=== PATIENT | female | born 1955 | race Caucasian/White ===

== ENCOUNTER 2017-08-01 20:19 | Emergency (ER) | payer BC ==
[~2017-08-01] VITALS: Ht 162.6 cm; Wt 82.6 kg
[2017-08-01 20:19] VITALS: BP 150/77
[~2017-08-01 20:19] MED LIST: ARMO150T4 PO; CARB1TAB44 PO; CARB1TAB47 PO; KRIL1CAP23 PO; MULT-299 PO; OMEP20CA9 PO; ROPI5TAB2 PO; TOLT4CAP12 PO; TRAZ50TA15 PO; levodopa
[2017-08-01] MEDS ORDERED: IOHEXOL 300 MG/ML 75 ML VIAL IV ONE (21:30)
[2017-08-01] MEDS ORDERED: CONTRAST GIVEN MC PRN (21:45)
[2017-08-01 21:52] LABS: POTASSIUM ISTAT 3.3 mmol/L (3.5-5.0)
--- NOTE | 2017-08-01 22:00 | PHYS DOC ---
Past Medical History Past Medical History: GERD, Hypertension, Kidney Stone Additional Past Medical Histor: PARKINSONS, SLEEP APNEA, INSOMNIA, VIT D DEF Past Surgical History: Tonsillectomy Additional Past Surgical Histo: BUNIONECTOMY, ULNAR NERVE, LITHOTRIPSY C STENT. Alcohol Use: None Drug Use: None Adult General Chief Complaint Chief Complaint: MECHANICAL FALL HPI HPI Patient is a 61 year old F who presents with fall. Patient has Parkinson's and states she tripped over her feet and fell hitting her right side of her body. Patient has a hematoma to her right forehead and complains of some right rib pain. Patient states she did not lose consciousness. Patient denies any other injuries to her extremities upper and lower. Review of Systems Review of Systems GEN: Denies fevers, chills, sweats HEENT: Hematoma to right forehead CV: Right chest wall pain RESP: Denies shortness of air, cough GI: Denies n/v/d NEURO: Denies confusion, dizziness MSK: Denies weakness, joint pain/swelling Current Medications Current Medications Current Medications Medications (Trade) Dose Ordered Sig/Aaron Start Time Stop Time Status Last Admin Dose Admin Info (Do NOT chart on this entry -- for MONITORING) 1 each PRN DAILY PRN 08/01/17 21:45 08/03/17 21:44 Iohexol (Omnipaque 300 Mg/ml) 75 ml 1X ONCE 08/01/17 21:30 08/01/17 21:31 DC 08/01/17 21:30 75 ML Allergies Allergies Allergies Coded Allergies Type Severity Reaction Last Updated Verified No Known Drug Allergies 10/11/16 No Physical Exam Physical Exam GEN.: No apparent distress. Alert and oriented. HEENT: Hematoma to right forehead NECK: Supple. LUNGS: CTAB. HEART: RRR, S1, S2 present. Peripheral pulses intact, right chest wall pain with palpation ABDOMEN: Soft, nontender. Positive bowel sounds. EXTREMITIES: Without any cyanosis. NEUROLOGIC: Normal speech, normal tone PSYCHIATRIC: Normal affect, normal mood. SKIN: No ulcerations Current Patient Data Vital Signs Vital Signs Date Time Temp Pulse Resp B/P (MAP) Pulse Ox O2 Delivery O2 Flow Rate FiO2 08/01/17 20:19 98.1 86 16 150/77 (101) 98 Room Air 98.1 Lab Values Laboratory Tests Test 08/01/17 21:50 POC Hemoglobin 12.9 g/dL (12-15) POC Hematocrit 38 % (36-40) POC Sodium 142 mmol/L (135-145) POC Potassium 3.3 mmol/L (3.5-5.0) L POC Chloride 99 mmol/L (98-110) POC Total CO2 28 mmol/L (23-32) Anion Gap 18 mmol/L (6-14) H POC Blood Urea Nitrogen 14 mg/dL (8-26) POC Creatinine 0.7 mg/dL (0.5-1.4) Glucose Level 90 mg/dL (70-99) POC Ionized Calcium (Stephanie) 1.22 mmol/L (1.13-1.32) Laboratory Tests 08/01/17 21:50 EKG EKG [] Radiology/Procedures Radiology/Procedures CT the head and neck and CT chest FINDINGS: There is a 1.5 cm hypodense nodule identified in the left lobe of thyroid gland. The central airways are patent. The caliber of the aorta grossly appears unremarkable. The heart size grossly appears unremarkable. No evidence of pericardial effusion. Mild linear bibasilar lung airspace opacities likely atelectasis. No evidence of pleural effusion or pneumothorax. No evidence of displaced rib fractures identified. The visualized liver, spleen grossly appears unremarkable. Mild degenerative changes thoracic spine.[] Course & Med Decision Making Course & Med Decision Making Pertinent Labs and Imaging studies reviewed. (See chart for details) ED course: Patient was seen and examined emergency room CT scans of the head/C-spine/CT the chest were ordered 2300: Patient was updated on CT findings and she was up walking around without any difficulties in the emergency room. Patient was made aware of the thyroid nodules however she has a history of and knows that are there. Patient is ready go home. MDM: After reviewing the chart, CC/HPI/PMH, physical exam, [lab results], [ radiological results], I do not believe the patient sustained a significant traumatic injury warranting further workup and admission at this time. Patient is stable for discharge. Additional verbal discharge instructions were provided to the patient and that if symptoms get worse or any new symptoms arise that are worrisome to the patient she is to return to the emergency room immediately [] Dragon Disclaimer Dragon Disclaimer This electronic medical record was generated, in whole or in part, using a voice recognition dictation system. Departure Departure Impression: Primary Impression: Closed head injury Additional Impression: Chest wall contusion Disposition: HOME, SELF-CARE Condition: IMPROVED Referrals: NATASHA SESAY MD (PCP) Patient Instructions: Concussion and Brain Injury, Fall Prevention and Home Safety Additional Instructions: Please follow-up with your family physician in the next one to 2 days return if symptoms increase Problem Qualifiers NICOLÁS TORRES DO Aug 01, 2017 22:00
--- NOTE | 2017-08-01 22:37 | RAD ---
Exam performed: CT scan of the head and cervical spine without contrast. Date of Service: 08/01/2017 Comparison: None available Clinical History: Patient fell and hit forehead on the cement. Hematoma over the right side Technique: Helical acquisitions are obtained from the foramen magnum to the vertex without intravenous administration of contrast. In addition helical acquisitions are obtained through the cervical spine. Sagittal and coronal reformatted images are obtained and reviewed. CT scan head findings: The ventricular system is midline without evidence of dilatation. Normal lester-white differentiation is maintained. There is no extra axial fluid collection, intraparenchymal hemorrhage or mass lesion. The visualized orbits, paranasal sinuses and the mastoid air cells are clear. The calvarium is intact. Impression: 1. Normal non-contrast CT of the brain. End Impression. CT cervical spine findings: Normal sagittal alignment is preserved. The vertebral body heights are maintained. There is narrowing of C4/5, C5/6 and C6/7 intravertebral disc spaces with mild osteophytic spurring. There is no kyle or retrolisthesis. No prevertebral soft tissue swelling is identified. There are no fractures. No definite lymphadenopathy or masses are seen within the neck. The visualized thyroid and salivary glands appears preserved. Impression: 1. No acute abnormality seen in the CT scan cervical spine. 2. Spondylotic changes and multilevel disc degenerative changes are noted. PQRS Compliance Statement: One or more of the following individualized dose reduction techniques were utilized for this examination: 1. Automated exposure control 2. Adjustment of the mA and/or kV according to patient size 3. Use of iterative reconstruction technique Electronically signed by: Orin Munoz MD (08/01/2017 10:33 PM) [facility]
--- NOTE | 2017-08-01 22:46 | RAD ---
Examination: CT chest with IV contrast HISTORY: History of fall, rib pain COMPARISON: None available TECHNIQUE: Axial CT images of chest were performed with IV contrast. Coronal and sagittal reformats are performed. Exposure: One or more of the following individualized dose reduction techniques were utilized for this examination: 1. Automated exposure control 2. Adjustment of the mA and/or kV according to patient size 3. Use of iterative reconstruction technique FINDINGS: There is a 1.5 cm hypodense nodule identified in the left lobe of thyroid gland. The central airways are patent. The caliber of the aorta grossly appears unremarkable. The heart size grossly appears unremarkable. No evidence of pericardial effusion. Mild linear bibasilar lung airspace opacities likely atelectasis. No evidence of pleural effusion or pneumothorax. No evidence of displaced rib fractures identified. The visualized liver, spleen grossly appears unremarkable. Mild degenerative changes thoracic spine. IMPRESSION: 1. No evidence of displaced rib fracture identified. 2. Mild bibasilar lung atelectasis. 3. 1.5 cm hypodense nodule identified in the left lobe of the thyroid gland. Follow-up nonemergent ultrasound is recommended. Electronically signed by: Oj Pandey MD (08/01/2017 10:44 PM) [facility]
== END 2017-08-01 23:40 | disposition home or self-care (01) ==
LOC: ER 20:19
DX: S20.211A Contusion of right front wall of thorax, initial encounter (principal); S00.83XA Contusion of other part of head, initial encounter; S09.90XA Unspecified injury of head, initial encounter; K21.9 Gastro-esophageal reflux disease without esophagitis; I10 Essential (primary) hypertension; G20 Parkinson's disease; G47.30 Sleep apnea, unspecified; G47.00 Insomnia, unspecified; Z87.442 Personal history of urinary calculi; W01.198A Fall on same level from slipping, tripping and stumbling with subsequent striking against other object, initial encounter; Y93.89 Activity, other specified; Y92.89 Other specified places as the place of occurrence of the external cause; Y99.8 Other external cause status
CPT/HCPCS: 36415; 70450; 71260; 72125; 80047; 85014; 85018; 99284; Q9967

== ENCOUNTER → 2017-11-20 | Outpatient (CLI) | payer BC ==
[~2017-11-20] MED LIST changes: -ARMO150T4 PO; -CARB1TAB44 PO; -CARB1TAB47 PO; -KRIL1CAP23 PO; +LIDOCAINE 2% 20 ML VIAL. IJ; -MULT-299 PO; -OMEP20CA9 PO; -ROPI5TAB2 PO; -TOLT4CAP12 PO; -TRAZ50TA15 PO; -levodopa
== END | disposition home or self-care (01) ==
LOC: US 13:17
DX: E04.2 Nontoxic multinodular goiter (principal)
CPT/HCPCS: 60300; 76942; 88173; 88305

== ENCOUNTER → 2017-12-16 | Outpatient (CLI) | payer OTHER | END | disposition home or self-care (01) | LOC: KCIC CT 13:12 | DX: I62.00 Nontraumatic subdural hemorrhage, unspecified (principal) | CPT/HCPCS: 70450 ==

== ENCOUNTER 2019-07-10 16:25 | Inpatient (IN) | payer MEDICARE, OTHER ==
[~2019-07-10] VITALS: Ht 162.6 cm; Wt 59.5 kg
[~2019-07-10 16:25] MED LIST changes: +ARMO150T4 PO; +CARB1TAB2 PO; +CARB1TAB44 PO; +CARB1TAB47 PO; +CHOL10003 PO; +CYAN-25 PO; +KRIL1CAP23 PO; -LIDOCAINE 2% 20 ML VIAL. IJ; +MULT-299 PO; +OMEP20CA10 PO; +RANI150T2 PO; +ROPI5TAB4 PO; +TOLT4CAP PO; +TOLT4CAP12 PO; +TRAZ-118 PO; +levodopa
[2019-07-10] MEDS ORDERED: KETOROLAC 30 MG/ML VIAL. IV ONE (16:30)
[2019-07-10 17:11] LABS: BASO # 0.1 x10^3/uL (0.0-0.2); BASO % 1 % (0-3); EOS # 0.2 x10^3/uL (0.0-0.7); EOS % 1 % (0-3); HEMOGLOBIN 12.8 g/dL (12.0-15.5); LYMPH # 2.5 x10^3/uL (1.0-4.8); LYMPH % 22 % (24-48); MEAN CORPUSCULAR HEMOGLOBIN 31 pg (25-35); MEAN CORPUSCULAR HGB CONC 35 g/dL (31-37); MEAN CORPUSCULAR VOLUME 90 fL (79-100); MONO # 0.7 x10^3/uL (0.0-1.1); MONO % 6 % (0-9); NEUT # 8.2 x10^3/uL (1.8-7.7); NEUT % 71 % (31-73); PLATELET COUNT 281 x10^3/uL (140-400); RED BLOOD COUNT 4.13 x10^6/uL (3.50-5.40); RED CELL DISTRIBUTION WIDTH 13.7 % (11.5-14.5); WHITE BLOOD COUNT 11.6 x10^3/uL (4.0-11.0)
[2019-07-10 17:19] LABS: CALCIUM 9.4 mg/dL (8.5-10.1); CREATININE 0.7 mg/dL (0.6-1.0); POTASSIUM 3.9 mmol/L (3.5-5.1)
--- NOTE | 2019-07-10 17:20 | PHYS DOC ---
Past Medical History Past Medical History: GERD, Hypertension, Kidney Stone Additional Past Medical Histor: PARKINSONS, SLEEP APNEA, INSOMNIA, VIT D DEF Past Surgical History: Tonsillectomy Additional Past Surgical Histo: BUNIONECTOMY, ULNAR NERVE, LITHOTRIPSY C STENT., L knee Alcohol Use: None Drug Use: None Adult General Chief Complaint Chief Complaint: MECHANICAL FALL HPI HPI Patient is a 63 year old female with history of Parkinson's disease who presents with right hip pain after accidental fall from standing. Patient reports diffuse right pain radiating to pelvis worse with palpation. No lower extremity motor weakness or loss of sensation. Patient arrives by EMS and required 10 mg of morphine given in route. Patient also reports right flank/lower abdominal pain from a fall 1 week prior. Patient denies hitting her head, loss of consciousness, headache or neck pain. No other acute symptoms or complaints.[] Review of Systems Review of Systems Review symptoms as per history of present illness. All other review symptoms are negative. All other systems were reviewed and found to be within normal limits, except as documented in this note. Current Medications Current Medications Current Medications Medications (Trade) Dose Ordered Sig/Aaron Start Time Stop Time Status Last Admin Dose Admin Ketorolac Tromethamine (Toradol 30mg Vial) 30 mg 1X ONCE 07/10/19 16:30 07/10/19 16:33 DC 07/10/19 17:00 30 MG Allergies Allergies Allergies Coded Allergies Type Severity Reaction Last Updated Verified No Known Drug Allergies 10/11/16 No Physical Exam Physical Exam Constitutional: Moderate distress secondary to pain.[] HENT: Normocephalic, atraumatic, bilateral external ears normal, oropharynx moist, nose normal. [] Eyes: PERRLA, EOMI, conjunctiva normal. [] Neck: Normal range of motion, no midline tenderness, supple, no stridor. [] Cardiovascular:Heart rate regular rhythm, no murmur [] Lungs & Thorax: Bilateral breath sounds clear to auscultation [] Abdomen: Bowel sounds normal, soft, no tenderness. [] Skin: Warm, dry, no erythema, no rash. [] Back: No tenderness, no CVA tenderness. [] Extremities: Right hip pain, tenderness, limited range of motion secondary pain, no obvious rotation shortening of right lower extremity. [] Neurologic: Alert and oriented X 3, normal motor function, normal sensory function, no focal deficits noted. [] Current Patient Data Vital Signs Vital Signs Date Time Temp Pulse Resp B/P (MAP) Pulse Ox O2 Delivery O2 Flow Rate FiO2 07/10/19 16:25 97.9 76 139/55 (83) 98 Room Air 97.9 EKG EKG [] Radiology/Procedures Radiology/Procedures [Pelvis/right hip: intertroch fx.] Course & Med Decision Making Course & Med Decision Making Pertinent Labs and Imaging studies reviewed. (See chart for details) [Isolated right hip injury.. Pain address. Dr. Gomez consult for orthopedic surgery. Dr. Bui to admit] Dragon Disclaimer Dragon Disclaimer This electronic medical record was generated, in whole or in part, using a voice recognition dictation system. Departure Departure Impression: Primary Impression: Closed right hip fracture Disposition: ADMITTED INPATIENT Condition: STABLE Referrals: NATASHA SESAY MD (PCP) YRIS WHEAT DO Jul 10, 2019 17:20
[2019-07-10 17:25] LABS: ALBUMIN 3.8 g/dL (3.4-5.0); ALBUMIN/GLOBULIN RATIO 1.2 (1.0-1.7); TOTAL BILIRUBIN 1.1 mg/dL (0.2-1.0); TOTAL PROTEIN 7.1 g/dL (6.4-8.2)
[2019-07-10] MEDS ORDERED: ONDANSETRON PF 4 MG/2 ML VIAL. IV PRN (17:30)
[2019-07-10] MEDS ORDERED: ORPHENADRINE CITRATE 60 MG/2 ML VIAL. IV PRN (17:30)
[2019-07-10] MEDS ORDERED: MORPHINE SULFATE 2 MG/ML VIAL. IV PRN (17:30)
[2019-07-10] MEDS: IV NORMAL SALINE 1000ML BAG 1,000 ML IV SCH (17:36)
[2019-07-10] MEDS: fentaNYL PF VIAL 100 MCG/2 ML VIAL IV PRN ×2 (17:41→23:46)
--- NOTE | 2019-07-10 18:06 | RAD ---
Exam: Chest one view. Right hip with AP pelvis INDICATION: Trauma TECHNIQUE: Frontal view of the chest. Frontal view of the pelvis with frog-leg lateral and frontal view of the right hip. Comparisons: None FINDINGS: CHEST: The cardiomediastinal silhouette and pulmonary vessels are within normal limits. The lung and pleural spaces are clear. Hip: Transverse fracture through the mid right femoral neck. Fracture is mildly displaced with foreshortening at the fracture site. No other fractures are seen. Soft tissues are unremarkable. Joint spaces are well-maintained. IMPRESSION: 1. No acute cardiopulmonary process. 2. Transverse fracture to the mid right femoral neck Electronically signed by: Gabriella Faith MD (07/10/2019 6:03 PM) [facility]
[2019-07-10] MEDS ORDERED: PANT20TA2 PO (18:39)
[2019-07-10] MEDS ORDERED: CARB1CAP7 PO (18:39)
[2019-07-10] MEDS ORDERED: CARB1CAP5 PO (18:39)
[2019-07-10] MEDS ORDERED: CITA10TA4 PO (18:39)
[2019-07-10] MEDS ORDERED: MELO15TA23 PO (18:39)
[2019-07-10] MEDS ORDERED: RASA1TAB2 PO (18:39)
[2019-07-10 19:00] VITALS: BP 124/81
[2019-07-10] MEDS ORDERED: LEVODOPA PO PRN (19:30)
[2019-07-10] MEDS ORDERED: CARBIDOPA PO PRN (19:30)
--- NOTE | 2019-07-10 21:28 | HP ---
ADMIT DATE: 07/10/2019 CHIEF COMPLAINT: Mechanical fall with hip pain. HISTORY OF PRESENT ILLNESS: The patient is a pleasant 63-year-old female who was in her basement and fell. She complained of hip pain. She does have a severe Parkinson's as well. We did some imaging. It appears she has a hip fracture. We are going to admit the patient. She is going to surgery in the morning. PAST MEDICAL HISTORY: GERD, Parkinson's, hypertension, kidney stones, obstructive sleep apnea, insomnia, vitamin D deficiency, bunionectomy, ulnar nerve surgery, lithotripsy, left knee surgery, tonsillectomy. ALLERGIES: None. FAMILY HISTORY: Parkinson's in her mom. SOCIAL HISTORY: She is retired. She does not drink, smoke, or take drugs. She is trying to sell her house and move to [place] with her daughter. MEDICATIONS: Reviewed, please refer to the MRAD. REVIEW OF SYSTEMS: GENERAL: No history of weight change, weakness or fevers. SKIN: No bruising, hair changes or rashes. EYES: No blurred, double or loss of vision. NOSE AND THROAT: No history of nosebleeds, hoarseness or sore throat. HEART: No history of palpitations, chest pain or shortness of breath on exertion. LUNGS: Denies cough, hemoptysis, wheezing or shortness of breath. GASTROINTESTINAL: Denies changes in appetite, nausea, vomiting, diarrhea or constipation. GENITOURINARY: No history of frequency, urgency, hesitancy or nocturia. NEUROLOGIC: She complains of increased shaking. PSYCHIATRIC: No history of panic, anxiety or depression. ENDOCRINE: No history of heat or cold intolerance, polyuria or polydipsia. EXTREMITIES: She complains of right hip pain. MUSCULOSKELETAL: She complains of pain. PHYSICAL EXAMINATION: VITALS: Within normal limits and are stable. GENERAL: No apparent distress. Alert and oriented. HEENT: Head is normocephalic, atraumatic, pupils were equally round and reactive to light and accommodation. NECK: Supple, no JVD, no thyromegaly was noted. LUNGS: Clear to auscultation in all lung colon without rhonchi or wheezing. HEART: RRR, S1, S2 present. Peripheral pulses intact, no obvious murmurs were noted. ABDOMEN: Soft, nontender. Positive bowel sounds no organomegaly, normal bowel sounds. EXTREMITIES: Without any cyanosis, clubbing, or edema. Pedal pulses intact, Homans sign is negative. She has right hip pain. NEUROLOGIC: She has typical tremors consistent with Parkinson's. PSYCHIATRIC: Normal affect, normal mood. Stable. SKIN: No ulcerations or rashes, good skin turgor, no jaundice. VASCULAR: Good capillary refill, neurovascular bundle appears to be intact. LABORATORY DATA: White count is 12. Electrolytes are normal. ASSESSMENT AND PLAN: Transverse fracture of the mid right femoral neck after a fall in a middle-aged female who has Parkinson's and other medical issues. Clinically, she is stable for surgery. We have consulted Ortho. She is going to surgery in the morning. For now, I am going to resume her home meds, n.p.o. after midnight. Postoperatively, she is going to need aggressive physical therapy, occupational therapy, and probably in a few days she will be able to go to either assisted or [facility]. Long-term prognosis is guarded. TIBURCIO QUINN DO DR: ZACH/nicolasa JOB#: [id number] / [id number]
[2019-07-10] MEDS: RYTARY PO SCH ×2 (22:02)
[2019-07-10 23:00] VITALS: BP 98/71
[2019-07-11] VITALS (11 sets, daily range): BP systolic 57–149; BP diastolic 24–87
[2019-07-11] MEDS: CARBIDOPA PO SCH (01:00)
[2019-07-11] MEDS: LEVO PO SCH (01:00)
[2019-07-11] MEDS: fentaNYL PF VIAL 100 MCG/2 ML VIAL IV PRN (05:04)
[2019-07-11] MEDS ORDERED: MORPHINE SULFATE 5 MG, KETOROLAC 30MG VIAL 30 MG, ROPIVacaine 0.5% PF 60 ML, EPINEPHrin... INT ART ONE ×5 (06:00)
[2019-07-11] MEDS: RYTARY PO SCH ×11 (06:13→21:57)
[2019-07-11] MEDS: IV NORMAL SALINE 1000ML BAG 1,000 ML IV SCH (06:40)
[2019-07-11] MEDS ORDERED: DEXAMETHASONE SOD PHOS 4 MG/ML VIAL ONE (07:10)
[2019-07-11] MEDS ORDERED: ONDANSETRON PF 4 MG/2 ML VIAL. ONE (07:10)
[2019-07-11] MEDS ORDERED: LIDOCAINE 2% PF 5 ML VIAL. ONE (07:10)
[2019-07-11] MEDS ORDERED: PROPOFOL 20 ML IV ONE (07:10)
[2019-07-11] MEDS ORDERED: IV RINGERS,LACTATED 1000ML 1,000 ML IV SCH (07:22)
[2019-07-11] MEDS ORDERED: MORPHINE SULFATE 2 MG/ML VIAL. IV PRN ×2 (07:30→10:45)
[2019-07-11] MEDS ORDERED: HYDROmorphone 2 MG/ML VIAL IV PRN (07:30)
[2019-07-11] MEDS ORDERED: PROCHLORPERAZINE 10 MG/2 ML VIAL. IV PRN (07:30)
[2019-07-11] MEDS ORDERED: fentaNYL PF VIAL 100 MCG/2 ML VIAL ONE ×2 (07:36→09:47)
[2019-07-11] MEDS: RASAGILINE 1 MG PO SCH (08:00)
[2019-07-11] MEDS: DETROL 4 MG PO SCH (08:00)
[2019-07-11] MEDS ORDERED: SEVOFLURANE 61 TO 120 MINUTES. IH ONE (08:31)
[2019-07-11] MEDS ORDERED: RASAGILINE 1 MG PO SCH (09:00)
[2019-07-11] MEDS ORDERED: TOLTERODINE 4 MG PO SCH (09:00)
[2019-07-11] MEDS ORDERED: CITALOPRAM 10 MG TABLET PO SCH (09:00)
[2019-07-11] MEDS ORDERED: ePHEDrine PF IN SALINE 50 MG/10 ML SYRINGE. IV ONE (09:12)
[2019-07-11] MEDS ORDERED: SEVOFLURANE > 120 MINUTES. IH ONE (09:14)
[2019-07-11] MEDS ORDERED: ceFAZolin SODIUM 1 GM VIAL ONE (09:17)
--- NOTE | 2019-07-11 09:32 | CONS ---
DATE OF CONSULTATION: 07/11/2019 CHIEF COMPLAINT: Right hip fracture. HISTORY OF PRESENT ILLNESS: The patient is a 63-year-old female with Parkinson's disease, who lives alone and fell in her basement. Fortunately, her daughter states that she was there when this episode happened as her mom fell in an area where she was inaccessible to her phone and normally lives alone. She ambulates independently, although she does have gait of difficulties due to Parkinson's disease. PAST MEDICAL HISTORY: Significant for Parkinson's disease, hypertension, kidney stones, reflux disease, sleep apnea, insomnia, and vitamin D deficiency. PAST SURGICAL HISTORY: Significant for surgery on her ulnar nerve, bunions, a lithotripsy, left knee replacement, and tonsillectomy. FAMILY HISTORY: Significant for Parkinson's in her mom. SOCIAL HISTORY: She is retired, lives alone. Denies smoking, alcohol or drug use and her family had been encouraging her to sell her house. MEDICATIONS: List is reviewed. ALLERGIES: She has no known drug allergies. REVIEW OF SYSTEMS: She denies hitting her head. She did hit her elbow, but can move it well, has severe hip pain, inability to bear weight and has chronic gait difficulties secondary to the Parkinson's. Denies any head injury, visual changes, headache, radiating pain, focal weakness, numbness, tingling, chest pain, shortness of breath or other constitutional symptoms. PHYSICAL EXAMINATION: GENERAL: A pleasant, cooperative 63-year-old female, alert and oriented, no acute distress. Height 64 inches. Weight 58.9 kilos. HEENT: Atraumatic, normocephalic. HEART: Regular rate and rhythm. EXTREMITIES: She moves both shoulders, elbows, wrists well bilaterally. No bruising or abrasion on the right elbow. Ligaments are stable. Rotator cuff strength is good bilaterally and she has good grasp. On examination of lower extremities, the right hip is shortened, internally rotated, has healed total knee arthroplasty present on the left. Normal examination of the contralateral left hip, bilateral ankles and right knee. IMAGING: X-rays appeared to show basicervical femoral neck fracture with slight displacement. IMPRESSION: Basicervical femoral neck fracture. TREATMENT PLAN: I talked with the family about fixation of the fracture itself and plan of intramedullary hip screw and we talked her risks, benefits, postoperative course of the surgery, the possibility of nonoperative management being unlikely due to the poor healing results and immobility related factors, talked to her the possibility of nonhealing, nerve or blood vessel damage, medical or other anesthetic complications among others, difficulty getting her rehab, especially with the Parkinson's disease and preexisting gait difficulties. All their questions were answered and they agreed to proceed with surgical evaluation and treatment, which will occur today. RK HAMPTON MD DR: DEAN/nts JOB#: [id number] / [id number]
--- NOTE | 2019-07-11 10:18 | EKG ---
[facility] [address] [place] [address] Test Date: 2019-07-10 Test Time: 17:32:30 Pat Name: VALENCIA ABREU Department: Room: 434 1 Gender: F [employer] Lead: : 1955 Requested By: YRIS WHEAT Order Number: [id number] Reading MD: Lio Nolan Measurements Intervals [place] Rate: 93 P: -39 WI: 156 QRS: 59 QRSD: 94 T: 56 QT: 374 QTc: 468 Interpretive Statements SINUS RHYTHM LEFT ATRIAL ABNORMALITY NONSPECIFIC ST-T WAVE CHANGES. Electronically Signed On 07-16-2019 9:46:13 CDT by Lio Nolan
[2019-07-11] MEDS ORDERED: DEXTROSE 50% 25 GM / 50ML DISP.SYRIN. IV PRN (10:45)
[2019-07-11] MEDS ORDERED: IV DEXTROSE 5% 250 ML BAG. IV PRN (10:45)
[2019-07-11] MEDS ORDERED: oxyCODONE IR 5 MG TABLET PO PRN (10:45)
[2019-07-11] MEDS ORDERED: ONDANSETRON PF 4 MG/2 ML VIAL. IV PRN (10:45)
[2019-07-11] MEDS ORDERED: fentaNYL PF VIAL 100 MCG/2 ML VIAL IV PRN (10:45)
[2019-07-11] MEDS ORDERED: POLYETHYLENE GLYCOL 3350 17 GM PACKET. PO PRN (10:45)
--- NOTE | 2019-07-11 10:47 | PDOC4 ---
Operative Note Operative Note Date of surgery: 07/11/2019 Preoperative diagnosis: Displaced basicervical right femoral neck fracture Postoperative diagnosis: Displaced mid femoral neck fracture Operative procedure: Right hip hemiarthroplasty Surgeon: Patricia Anesthesia: Gen. Estimated blood loss: 150 mL Complications: None Drains: Hemovac right hip Operative indications: Please see my orthopedic consultation for detailed operative indications noted that she is a 63-year-old female with Parkinson's and fell. She had sustained a displaced femoral neck fracture and I had discussed with patient and family the plan for initial fixation however when x- rays showed more of a mid neck femoral neck fracture plans were changed to a right hip hemiarthroplasty I had discussed risks benefits postoperative course the possibility of instability nerve or blood vessel damage ongoing weakness infection medical or other anesthetic complications among others patient and family agree to proceed with surgical evaluation and treatment. Operative text: Patient was identified procedure verified patient placed in the supine position on the operating table. After adequate amounts of general anesthesia were administered right leg was first placed in traction but with a reduction maneuver noted to have a mid femoral neck fracture and plans were changed to a right hip hemiarthroplasty she is placed decubitus right side up with the Stulberg hip positioners in the right hip prepped and draped in standar d sterile fashion. After timeout was performed patient procedure identified and verified a curvilinear incision was made over the greater trochanter of the right hip dissection carried out down iliotibial band and gluteal fascia divided in line with their fibers external rotators were divided from their insertion hip capsule was split in a T fashion. Femoral neck and head were removed sized at a size 45 proximal femur was cut using the reference cutting guide drilled and broached and a size 12 broach was seated in proper version and trial fit with a +0 45 mm bipolar head which is achieved excellent stability and reproduced leg length and offset. Trial components were removed a size 12 Synergy stem was impacted and a Tran and nephew bipolar component 45 mm outer diameter 28 mm inner diameter was assembled and impacted to engage the Wren taper and was reduced again showing equivalent stability leg length offset and full range of motion and thorough irrigation carried out normal saline solution hip capsule was repaired with #5 Ethibond suture external rotators were reattached transosseously with #5 Ethibond a Hemovac drain was placed the pain catheter mixture was injected throughout the joint capsule fascia was closed with #1 PDS strata fix suture subcutaneous closure with buried Vicryl suture subcuticular 3-0 strata fix Monocryl and tonny drain with Acticoat were placed. Patient was returned recovery room in stable condition having tolerated procedure well RK HAMPTON MD Jul 11, 2019 10:47
--- NOTE | 2019-07-11 11:23 | RAD ---
Right hip 2 views including AP pelvis 07/11/2019. Reason for exam: Postop hip replacement. Comparison is made with intraoperative image of earlier in the day. Views of the right hip now show a prosthesis in place. This appear well seated. No fracture or dislocation is seen. A single view of the pelvis shows no fracture or dislocation. No other acute abnormality is seen. Electronically signed by: Lio Cavazos Jr., MD (07/11/2019 11:20 AM) [facility]
[2019-07-11] MEDS: IV RINGERS,LACTATED 1000ML 1,000 ML IV SCH ×2 (11:45→16:53)
[2019-07-11] MEDS: CITALOPRAM 10 MG PO SCH (13:55)
[2019-07-11] MEDS: ceFAZolin SODIUM IV Push 1 GM VIAL. IVP SCH ×2 (13:57→20:53)
--- NOTE | 2019-07-11 14:41 | PDOC ---
PROGRESS NOTES Chief Complaint Chief Complaint Transverse fracture of the mid right femoral neck Parkinson's disease History of Present Illness History of Present Illness surg today feels well a lot of movement of trunk, parkinsons stable per patient cont current PT and OT, consider acute rehab Vitals Vitals Vital Signs Date Time Temp Pulse Resp B/P (MAP) Pulse Ox O2 Delivery O2 Flow Rate FiO2 07/11/19 11:15 97.5 70 16 128/59 98 Room Air 97.5 07/11/19 10:30 10 Physical Exam Lungs: Clear Labs LABS Laboratory Tests Test 07/10/19 17:05 White Blood Count 11.6 x10^3/uL (4.0-11.0) Red Blood Count 4.13 x10^6/uL (3.50-5.40) Hemoglobin 12.8 g/dL (12.0-15.5) Hematocrit 37.0 % (36.0-47.0) Mean Corpuscular Volume 90 fL (79-100) Mean Corpuscular Hemoglobin 31 pg (25-35) Mean Corpuscular Hemoglobin Concent 35 g/dL (31-37) Red Cell Distribution Width 13.7 % (11.5-14.5) Platelet Count 281 x10^3/uL (140-400) Neutrophils (%) (Auto) 71 % (31-73) Lymphocytes (%) (Auto) 22 % (24-48) Monocytes (%) (Auto) 6 % (0-9) Eosinophils (%) (Auto) 1 % (0-3) Basophils (%) (Auto) 1 % (0-3) Neutrophils # (Auto) 8.2 x10^3/uL (1.8-7.7) Lymphocytes # (Auto) 2.5 x10^3/uL (1.0-4.8) Monocytes # (Auto) 0.7 x10^3/uL (0.0-1.1) Eosinophils # (Auto) 0.2 x10^3/uL (0.0-0.7) Basophils # (Auto) 0.1 x10^3/uL (0.0-0.2) Sodium Level 141 mmol/L (136-145) Potassium Level 3.9 mmol/L (3.5-5.1) Chloride Level 104 mmol/L (98-107) Carbon Dioxide Level 23 mmol/L (21-32) Anion Gap 14 (6-14) Blood Urea Nitrogen 12 mg/dL (7-20) Creatinine 0.7 mg/dL (0.6-1.0) Estimated GFR (Cockcroft-Gault) 84.0 BUN/Creatinine Ratio 17 (6-20) Glucose Level 90 mg/dL (70-99) Calcium Level 9.4 mg/dL (8.5-10.1) Total Bilirubin 1.1 mg/dL (0.2-1.0) Aspartate Amino Transf (AST/SGOT) 16 U/L (15-37) Alanine Aminotransferase (ALT/SGPT) 11 U/L (14-59) Alkaline Phosphatase 63 U/L (46-116) Total Protein 7.1 g/dL (6.4-8.2) Albumin 3.8 g/dL (3.4-5.0) Albumin/Globulin Ratio 1.2 (1.0-1.7) Assessment and Plan Assessmemt and Plan Problems Medical Problems: (1) Closed right hip fracture Status: Acute Comment Review of Relevant I have reviewed the following items nichole (where applicable) has been applied. Labs Laboratory Tests Test 07/10/19 17:05 White Blood Count 11.6 x10^3/uL (4.0-11.0) Red Blood Count 4.13 x10^6/uL (3.50-5.40) Hemoglobin 12.8 g/dL (12.0-15.5) Hematocrit 37.0 % (36.0-47.0) Mean Corpuscular Volume 90 fL (79-100) Mean Corpuscular Hemoglobin 31 pg (25-35) Mean Corpuscular Hemoglobin Concent 35 g/dL (31-37) Red Cell Distribution Width 13.7 % (11.5-14.5) Platelet Count 281 x10^3/uL (140-400) Neutrophils (%) (Auto) 71 % (31-73) Lymphocytes (%) (Auto) 22 % (24-48) Monocytes (%) (Auto) 6 % (0-9) Eosinophils (%) (Auto) 1 % (0-3) Basophils (%) (Auto) 1 % (0-3) Neutrophils # (Auto) 8.2 x10^3/uL (1.8-7.7) Lymphocytes # (Auto) 2.5 x10^3/uL (1.0-4.8) Monocytes # (Auto) 0.7 x10^3/uL (0.0-1.1) Eosinophils # (Auto) 0.2 x10^3/uL (0.0-0.7) Basophils # (Auto) 0.1 x10^3/uL (0.0-0.2) Sodium Level 141 mmol/L (136-145) Potassium Level 3.9 mmol/L (3.5-5.1) Chloride Level 104 mmol/L (98-107) Carbon Dioxide Level 23 mmol/L (21-32) Anion Gap 14 (6-14) Blood Urea Nitrogen 12 mg/dL (7-20) Creatinine 0.7 mg/dL (0.6-1.0) Estimated GFR (Cockcroft-Gault) 84.0 BUN/Creatinine Ratio 17 (6-20) Glucose Level 90 mg/dL (70-99) Calcium Level 9.4 mg/dL (8.5-10.1) Total Bilirubin 1.1 mg/dL (0.2-1.0) Aspartate Amino Transf (AST/SGOT) 16 U/L (15-37) Alanine Aminotransferase (ALT/SGPT) 11 U/L (14-59) Alkaline Phosphatase 63 U/L (46-116) Total Protein 7.1 g/dL (6.4-8.2) Albumin 3.8 g/dL (3.4-5.0) Albumin/Globulin Ratio 1.2 (1.0-1.7) Laboratory Tests Test 07/10/19 17:05 White Blood Count 11.6 x10^3/uL (4.0-11.0) Red Blood Count 4.13 x10^6/uL (3.50-5.40) Hemoglobin 12.8 g/dL (12.0-15.5) Hematocrit 37.0 % (36.0-47.0) Mean Corpuscular Volume 90 fL (79-100) Mean Corpuscular Hemoglobin 31 pg (25-35) Mean Corpuscular Hemoglobin Concent 35 g/dL (31-37) Red Cell Distribution Width 13.7 % (11.5-14.5) Platelet Count 281 x10^3/uL (140-400) Neutrophils (%) (Auto) 71 % (31-73) Lymphocytes (%) (Auto) 22 % (24-48) Monocytes (%) (Auto) 6 % (0-9) Eosinophils (%) (Auto) 1 % (0-3) Basophils (%) (Auto) 1 % (0-3) Neutrophils # (Auto) 8.2 x10^3/uL (1.8-7.7) Lymphocytes # (Auto) 2.5 x10^3/uL (1.0-4.8) Monocytes # (Auto) 0.7 x10^3/uL (0.0-1.1) Eosinophils # (Auto) 0.2 x10^3/uL (0.0-0.7) Basophils # (Auto) 0.1 x10^3/uL (0.0-0.2) Sodium Level 141 mmol/L (136-145) Potassium Level 3.9 mmol/L (3.5-5.1) Chloride Level 104 mmol/L (98-107) Carbon Dioxide Level 23 mmol/L (21-32) Anion Gap 14 (6-14) Blood Urea Nitrogen 12 mg/dL (7-20) Creatinine 0.7 mg/dL (0.6-1.0) Estimated GFR (Cockcroft-Gault) 84.0 BUN/Creatinine Ratio 17 (6-20) Glucose Level 90 mg/dL (70-99) Calcium Level 9.4 mg/dL (8.5-10.1) Total Bilirubin 1.1 mg/dL (0.2-1.0) Aspartate Amino Transf (AST/SGOT) 16 U/L (15-37) Alanine Aminotransferase (ALT/SGPT) 11 U/L (14-59) Alkaline Phosphatase 63 U/L (46-116) Total Protein 7.1 g/dL (6.4-8.2) Albumin 3.8 g/dL (3.4-5.0) Albumin/Globulin Ratio 1.2 (1.0-1.7) Medications Current Medications Ketorolac Tromethamine (Toradol 30mg Vial) 30 mg 1X ONCE IV Last administered on 07/10/19at 17:00; Start 07/10/19 at 16:30; Stop 07/10/19 at 16:33; Status DC Ondansetron HCl (Zofran) 4 mg PRN Q8HRS PRN IV NAUSEA/VOMITING Last administered on 07/10/19at 17:36; Start 07/10/19 at 17:30; Stop 07/11/19 at 17:29 Morphine Sulfate (Morphine Sulfate) 2 mg PRN Q2HR PRN IV PAIN; Start 07/10/19 at 17:30; Stop 07/10/19 at 17:26; Status DC Sodium Chloride 1,000 ml @ 75 mls/hr [id number] IV Last administered on 07/10/19at 17:36; Start 07/10/19 at 17:20; Stop 07/11/19 at 17:19 Fentanyl Citrate (Fentanyl 2ml Vial) 50 mcg PRN Q2HR PRN IV PAIN SEVERE Last administered on 07/11/19at 05:05; Start 07/10/19 at 17:30 Orphenadrine Citrate (Norflex) 30 mg PRN Q8HRS PRN IV muscle spasm; Start 07/10/19 at 17:30 Non-Formulary Medication 1 ea 5XDAY PO Last administered on 07/11/19at 13:58; Start 07/10/19 at 22:00 Non-Formulary Medication 3 ea DAILY@0600 PO Last administered on 07/11/19at 06: 15; Start 07/11/19 at 06:00 Non-Formulary Medication 2 ea TID@1000,1400,2200 PO Last administered on 07/11/19at 13:58; Start 07/10/19 at 22:00 Non-Formulary Medication 1 ea DAILY@1800 PO Last administered on 07/11/19at 11:42; Start 07/11/19 at 18:00 Non-Formulary Medication 1 ea DAILY PO ; Start 07/11/19 at 09:00; Stop 07/11/19 at 00:51; Status DC Non-Formulary Medication 1 ea DAILY PO ; Start 07/11/19 at 09:00; Stop 07/11/19 at 00:51; Status DC Non-Formulary Medication 1 ea DAILY PO ; Start 07/11/19 at 09:00; Stop 07/11/19 at 00:51; Status DC Non-Formulary Medication 1 ea PRN BID PRN PO PARKINSON'S SYMPTOMS; Start 07/10/19 at 19:30; Stop 07/11/19 at 00:51; Status DC Non-Formulary Medication 1 ea 0100 PO Last administered on 07/11/19at 01:17; Start 07/11/19 at 01:00 Non-Formulary Medication 1 ea 1400 PO Last administered on 07/11/19at 13:58; Start 07/11/19 at 14:00 Non-Formulary Medication 1 ea DAILY08 PO Last administered on 07/11/19at 11:42; Start 07/11/19 at 08:00 Non-Formulary Medication 1 ea DAILY08 PO Last administered on 07/11/19at 11:42; Start 07/11/19 at 08:00 Propofol 20 ml @ As Directed STK-MED ONCE IV ; Start 07/11/19 at 07:10; Stop 07/11/19 at 07:10; Status DC Dexamethasone Sodium Phosphate (Decadron) 4 mg STK-MED ONCE .ROUTE ; Start 07/11/19 at 07:10; Stop 07/11/19 at 07:10; Status DC Lidocaine HCl (Lidocaine Pf 2% Vial) 5 ml STK-MED ONCE .ROUTE ; Start 07/11/19 at 07:10; Stop 07/11/19 at 07:11; Status DC Ondansetron HCl (Zofran) 4 mg STK-MED ONCE .ROUTE ; Start 07/11/19 at 07:10; Stop 07/11/19 at 07:11; Status DC Morphine Sulfate (Morphine Sulfate) 1 mg PRN Q10MIN PRN IV SEVERE PAIN 7-10; Start 07/11/19 at 07:30; Stop 07/12/19 at 07:29 Ringer's Solution 1,000 ml @ 30 mls/hr Q24H IV ; Start 07/11/19 at 07:22; Stop 07/11/19 at 19:21 Hydromorphone HCl (Dilaudid) 0.5 mg PRN Q10MIN PRN IV SEV PAIN, Second choice; Start 07/11/19 at 07:30; Stop 07/12/19 at 07:29 Prochlorperazine Edisylate (Compazine) 5 mg PACU PRN PRN IV NAUSEA, MRX1; Start 07/11/19 at 07:30; Stop 07/12/19 at 07:29 Fentanyl Citrate (Fentanyl 2ml Vial) 100 mcg STK-MED ONCE .ROUTE ; Start 07/11/19 at 07:36; Stop 07/11/19 at 07:36; Status DC Cefazolin Sodium 50 ml @ As Directed STK-MED ONCE IV ; Start 07/11/19 at 08:12; Stop 07/11/19 at 08:12; Status DC Sevoflurane (Ultane) 60 ml STK-MED ONCE IH ; Start 07/11/19 at 08:31; Stop 07/11/19 at 08:31; Status DC Morphine Sulfate 5 mg/Ketorolac Tromethamine 30 mg/Ropivacaine 60 ml/Epinephrine HCl 0.5 mg/Sodium Chloride 100 ml @ 100 mls/hr 1X ONCE INT ART Last administered on 07/11/19at 10:20; Start 07/11/19 at 06:00; Stop 07/11/19 at 09:07; Status DC Ephedrine Sulfate (ePHEDrine PF IN SALINE SYRINGE) 50 mg STK-MED ONCE IV ; Start 07/11/19 at 09:12; Stop 07/11/19 at 09:12; Status DC Sevoflurane (Ultane) 90 ml STK-MED ONCE IH ; Start 07/11/19 at 09:14; Stop 07/11/19 at 09:14; Status DC Cefazolin Sodium (Ancef) 1 gm STK-MED ONCE .ROUTE ; Start 07/11/19 at 09:17; Stop 07/11/19 at 09:17; Status DC Fentanyl Citrate (Fentanyl 2ml Vial) 100 mcg STK-MED ONCE .ROUTE ; Start 07/11/19 at 09:47; Stop 07/11/19 at 09:47; Status DC Cefazolin Sodium 50 ml @ 100 mls/hr 1X PREOP PRN IV PRIOR TO PROCEDURE Last administered on 07/11/19at 09:58; Start 07/12/19 at 06:00; Stop 07/11/19 at 11:25; Status DC Oxycodone HCl (Roxicodone) 5 mg PRN Q3HRS PRN PO PAIN; Start 07/11/19 at 10:45 Morphine Sulfate (Morphine Sulfate) 2 mg PRN Q1HR PRN IV PAIN; Start 07/11/19 at 10:45 Fentanyl Citrate (Fentanyl 2ml Vial) 25 mcg PRN Q1HR PRN IV PAIN; Start 07/11/19 at 10:45 Senna/Docusate Sodium (Senna Plus) 1 tab DAILY PO ; Start 07/12/19 at 09:00 Polyethylene Glycol (miraLAX PACKET) 17 gm PRN DAILY PRN PO CONSTIPATION; Start 07/11/19 at 10:45 Ondansetron HCl (Zofran) 4 mg PRN Q4HRS PRN IV NAUSEA/VOMITING; Start 07/11/19 at 10:45 Magnesium Hydroxide (Milk Of Magnesia) 2,400 mg 1X PRN PRN PO CONSTIPATION; Start 07/12/19 at 06:00; Stop 07/13/19 at 05:59 Bisacodyl (Dulcolax Supp) 10 mg 1X PRN PRN AR CONSTIPATION; Start 07/12/19 at 16:00; Stop 07/13/19 at 15:59 Acetaminophen/ Hydrocodone Bitart (Lortab 7.5/325) 1 tab PRN Q4HRS PRN PO PAIN; Start 07/11/19 at 10:45 Dextrose (Dextrose 50%-Water Syringe) 12.5 gm PRN Q15MIN PRN IV SEE COMMENTS; Start 07/11/19 at 10:45 Dextrose 250 ml PRN Q15MIN PRN IV SEE COMMENTS; Start 07/11/19 at 10:45 Cefazolin Sodium (Ancef) 1 gm Q6H IVP Last administered on 07/11/19at 13:58; Start 07/11/19 at 14:00; Stop 07/12/19 at 02:01 Rivaroxaban (Xarelto) 10 mg DAILYWSUP PO ; Start 07/11/19 at 17:00; Stop 08/22/19 at 16:59 Ringer's Solution 1,000 ml @ 120 mls/hr Q8H20M IV Last administered on at 11:45; Start 07/11/19 at 11:45 Active Scripts Active Reported Rytary ER 48.75 mg-195 mg Cap (Carbidopa/Levodopa) 1 Each Capsule.er 1 Each PO 5XDAY Rytary ER 61.25 mg-245 mg Cap (Carbidopa/Levodopa) 1 Each Capsule.er 1 Each PO 5XDAY Protonix (Pantoprazole Sodium) 20 Mg Tablet.dr 40 Mg PO DAILY Azilect (Rasagiline Mesylate) 1 Mg Tablet 1 Mg PO DAILY Meloxicam 15 Mg Tablet 1 Tab PO DAILY Citalopram Hbr (Citalopram Hydrobromide) 10 Mg Tablet 1 Tab PO DAILY Sinemet 25-100 Mg Tablet (Carbidopa/Levodopa) 1 Each Tablet 1 Tab PO PRN BID PRN Vitamin B-12 (Cyanocobalamin (Vitamin B-12)) 1,000 Mcg Tablet 5,000 Mcg PO DAILY Vitamin D3 (Cholecalciferol (Vitamin D3)) 1,000 Unit Tablet 2,000 Unit PO DAILY Tolterodine Tartrate Er (Tolterodine Tartrate) 4 Mg Cap.er.24h 4 Mg PO DAILY Women's Daily Caplet (Multivits,Ca,Minerals/Iron/Fa) 1 Each Tablet 1 Each PO DAILY Megared [place]-3 Krill Oil Sfgl (Krill/Om-3/Dha/Epa/Phospho/Ast) 1 Each Capsule 1 Each PO BID Vitals/I & O Vital Sign - Last 24 Hours 07/10/19 07/10/19 07/10/19 07/10/19 16:25 17:31 17:34 17:41 Temp 97.9 97.9 Pulse 76 90 94 Resp 20 20 20 B/P (MAP) 139/55 (83) Pulse Ox 98 98 98 99 O2 Delivery Room Air 07/10/19 07/10/19 07/10/19 07/10/19 18:01 19:00 20:30 23:00 Temp 97.7 97.8 97.7 97.8 Pulse 88 85 100 Resp 19 18 18 B/P (MAP) 124/81 (95) 98/71 (80) Pulse Ox 98 97 94 O2 Delivery Room Air Room Air Room Air 07/11/19 07/11/19 07/11/19 07/11/19 03:00 07:39 10:30 10:30 Temp 98.3 97.5 98.3 97.5 Pulse 69 68 Resp 18 16 B/P (MAP) 149/84 (105) 106/48 Pulse Ox 97 99 O2 Delivery Room Air Room Air Simple Mask Mask O2 Flow Rate 10 10 07/11/19 07/11/19 07/11/19 10:45 11:00 11:15 Temp 97.5 97.5 97.5 97.5 97.5 97.5 Pulse 80 70 70 Resp 17 16 16 B/P (MAP) 109/48 114/53 128/59 Pulse Ox 95 92 98 O2 Delivery Room Air Room Air Room Air Simple Mask Intake and Output 07/10/19 07/10/19 07/11/19 15:00 23:00 07:00 Intake Total 700 ml Output Total 600 ml Balance 700 ml -600 ml SHERRI BROWNLEE MD Jul 11, 2019 14:40
[2019-07-11] MEDS ORDERED: CARBIDOPA/LEVODOPA 25/100MG TABLET PO PRN (14:45)
[2019-07-11] MEDS: RIVAROXABAN 10 MG TABLET. PO SCH (16:52)
[2019-07-11] MEDS ORDERED: LEVODOPA PO SCH (18:00)
[2019-07-11] MEDS ORDERED: CARBIDOPA PO SCH (18:00)
[2019-07-11] MEDS: HYDROcodone/APAP 7.5/325MG 1 TAB TABLET PO PRN (20:58)
[2019-07-12] MEDS: IV RINGERS,LACTATED 1000ML 1,000 ML IV SCH ×3 (00:49→21:21)
[2019-07-12] MEDS: CARBIDOPA PO SCH (00:50)
[2019-07-12] MEDS: LEVO PO SCH (00:50)
[2019-07-12] MEDS: ceFAZolin SODIUM IV Push 1 GM VIAL. IVP SCH (02:35)
[2019-07-12 02:47] VITALS: BP 91/52
[2019-07-12 05:29] LABS: HEMATOCRIT 28.8 % (36.0-47.0); HEMOGLOBIN 9.9 g/dL (12.0-15.5)
[2019-07-12] MEDS ORDERED: MAGNESIUM HYDROXIDE 2,400 MG/30 ML ORAL.SUSP. PO PRN (06:00)
[2019-07-12] MEDS: RYTARY PO SCH ×10 (06:43→21:55)
[2019-07-12 07:00] VITALS: BP 101/53
[2019-07-12] MEDS: RASAGILINE 1 MG PO SCH (07:59)
[2019-07-12] MEDS: DETROL 4 MG PO SCH (07:59)
[2019-07-12] MEDS: SENNOSIDES/DOCUSATE 8.6/50MG TABLET. PO SCH ×2 (08:16→08:52)
[2019-07-12] MEDS: CHOLECALCIFEROL (VITAMIN D3) 1,000 UNIT TABLET PO SCH (08:52)
[2019-07-12] MEDS: CYANOCOBALAMIN (VITAMIN B-12) 1,000 MCG TABLET. PO SCH ×2 (08:55→09:27)
[2019-07-12] MEDS ORDERED: TOLTERODINE TARTRATE 4 MG PO SCH (09:00)
[2019-07-12] MEDS ORDERED: CITALOPRAM 10 MG TABLET. PO SCH (09:00)
[2019-07-12] MEDS ORDERED: NON FORMULARY ITEM (Pantoprazole Sodium (Protonix) 40 MG) PO SCH (09:00)
[2019-07-12] MEDS ORDERED: NON FORMULARY ITEM (Meloxicam 1 TAB) PO SCH (09:00)
[2019-07-12] MEDS ORDERED: RASAGILINE MESYLATE 1 MG PO SCH (09:00)
--- NOTE | 2019-07-12 10:44 | PDOC ---
PROGRESS NOTES Chief Complaint Chief Complaint Transverse fracture of the mid right femoral neck Parkinson's disease perative Note Operative Note Date of surgery: 07/11/2019 Preoperative diagnosis: Displaced basicervical right femoral neck fracture Postoperative diagnosis: Displaced mid femoral neck fracture Operative procedure: Right hip hemiarthroplasty Surgeon: Patricia Anesthesia: Gen. Estimated blood loss: 150 mL 29 min pt exam, chart review, > 50% of time spent with exam, chart review, pt care coordination History of Present Illness History of Present Illness surg today feels well a lot of movement of trunk, parkinsons stable per patient cont current PT and OT, consider acute rehab Vitals Vitals Vital Signs Date Time Temp Pulse Resp B/P (MAP) Pulse Ox O2 Delivery O2 Flow Rate FiO2 07/12/19 07:07 Room Air 07/12/19 07:00 97.6 67 16 101/53 (69) 96 97.6 07/11/19 14:59 2.0 Physical Exam Physical Exam RODERICK: Supple, no JVD, no thyromegaly was noted. LUNGS: Clear to auscultation in all lung colon without rhonchi or wheezing. HEART: RRR, S1, S2 present. Peripheral pulses intact, no obvious murmurs were noted. ABDOMEN: Soft, nontender. Positive bowel sounds no organomegaly, normal bowel sounds. EXTREMITIES: Without any cyanosis, clubbing, or edema. Pedal pulses intact, NEUROLOGIC: She has typical tremors consistent with Parkinson's. PSYCHIATRIC: Normal affect, normal mood. Stable. General: Cooperative Heart: Regular rate Lungs: Clear Abdomen: Normal bowel sounds, Soft, No tenderness Extremities: No cyanosis Labs LABS Laboratory Tests Test 07/12/19 04:35 Hemoglobin 9.9 g/dL (12.0-15.5) Hematocrit 28.8 % (36.0-47.0) Mean Corpuscular Hemoglobin Concent 34 g/dL (31-37) Assessment and Plan Assessmemt and Plan Problems Medical Problems: (1) Closed right hip fracture Status: Acute Comment Review of Relevant I have reviewed the following items nichole (where applicable) has been applied. Labs Laboratory Tests Test 07/10/19 17:05 07/11/19 04:00 07/12/19 04:35 White Blood Count 11.6 x10^3/uL (4.0-11.0) Red Blood Count 4.13 x10^6/uL (3.50-5.40) Hemoglobin 12.8 g/dL (12.0-15.5) 9.9 g/dL (12.0-15.5) Hematocrit 37.0 % (36.0-47.0) 28.8 % (36.0-47.0) Mean Corpuscular Volume 90 fL (79-100) Mean Corpuscular Hemoglobin 31 pg (25-35) Mean Corpuscular Hemoglobin Concent 35 g/dL (31-37) 34 g/dL (31-37) Red Cell Distribution Width 13.7 % (11.5-14.5) Platelet Count 281 x10^3/uL (140-400) Neutrophils (%) (Auto) 71 % (31-73) Lymphocytes (%) (Auto) 22 % (24-48) Monocytes (%) (Auto) 6 % (0-9) Eosinophils (%) (Auto) 1 % (0-3) Basophils (%) (Auto) 1 % (0-3) Neutrophils # (Auto) 8.2 x10^3/uL (1.8-7.7) Lymphocytes # (Auto) 2.5 x10^3/uL (1.0-4.8) Monocytes # (Auto) 0.7 x10^3/uL (0.0-1.1) Eosinophils # (Auto) 0.2 x10^3/uL (0.0-0.7) Basophils # (Auto) 0.1 x10^3/uL (0.0-0.2) Sodium Level 141 mmol/L (136-145) Potassium Level 3.9 mmol/L (3.5-5.1) Chloride Level 104 mmol/L (98-107) Carbon Dioxide Level 23 mmol/L (21-32) Anion Gap 14 (6-14) Blood Urea Nitrogen 12 mg/dL (7-20) Creatinine 0.7 mg/dL (0.6-1.0) Estimated GFR (Cockcroft-Gault) 84.0 BUN/Creatinine Ratio 17 (6-20) Glucose Level 90 mg/dL (70-99) Calcium Level 9.4 mg/dL (8.5-10.1) Total Bilirubin 1.1 mg/dL (0.2-1.0) Aspartate Amino Transf (AST/SGOT) 16 U/L (15-37) Alanine Aminotransferase (ALT/SGPT) 11 U/L (14-59) Alkaline Phosphatase 63 U/L (46-116) Total Protein 7.1 g/dL (6.4-8.2) Albumin 3.8 g/dL (3.4-5.0) Albumin/Globulin Ratio 1.2 (1.0-1.7) Nasal Screen MRSA (PCR) Negative (Negative) Laboratory Tests Test 07/12/19 04:35 Hemoglobin 9.9 g/dL (12.0-15.5) Hematocrit 28.8 % (36.0-47.0) Mean Corpuscular Hemoglobin Concent 34 g/dL (31-37) Medications Current Medications Ketorolac Tromethamine (Toradol 30mg Vial) 30 mg 1X ONCE IV Last administered on 07/10/19at 17:00; Start 07/10/19 at 16:30; Stop 07/10/19 at 16:33; Status DC Ondansetron HCl (Zofran) 4 mg PRN Q8HRS PRN IV NAUSEA/VOMITING Last administered on 07/10/19at 17:36; Start 07/10/19 at 17:30; Stop 07/11/19 at 17:29; Status DC Morphine Sulfate (Morphine Sulfate) 2 mg PRN Q2HR PRN IV PAIN; Start 07/10/19 at 17:30; Stop 07/10/19 at 17:26; Status DC Sodium Chloride 1,000 ml @ 75 mls/hr [id number] IV Last administered on 07/10/19at 17:36; Start 07/10/19 at 17:20; Stop 07/11/19 at 17:19; Status DC Fentanyl Citrate (Fentanyl 2ml Vial) 50 mcg PRN Q2HR PRN IV PAIN SEVERE Last administered on 07/11/19at 05:05; Start 07/10/19 at 17:30; Stop 07/12/19 at 10:32; Status DC Orphenadrine Citrate (Norflex) 30 mg PRN Q8HRS PRN IV muscle spasm; Start 07/10/19 at 17:30 Non-Formulary Medication 1 ea 5XDAY PO Last administered on 07/12/19at 08:55; Start 07/10/19 at 22:00 Non-Formulary Medication 3 ea DAILY@0600 PO Last administered on 07/12/19at 06:44; Start 07/11/19 at 06:00 Non-Formulary Medication 2 ea TID@1000,1400,2200 PO Last administered on 07/12/19at 08:55; Start 07/10/19 at 22:00 Non-Formulary Medication 1 ea DAILY@1800 PO Last administered on 07/11/19at 17:44; Start 07/11/19 at 18:00 Non-Formulary Medication 1 ea DAILY PO ; Start 07/11/19 at 09:00; Stop 07/11/19 at 00:51; Status DC Non-Formulary Medication 1 ea DAILY PO ; Start 07/11/19 at 09:00; Stop 07/11/19 at 00:51; Status DC Non-Formulary Medication 1 ea DAILY PO ; Start 07/11/19 at 09:00; Stop 07/11/19 at 00:51; Status DC Non-Formulary Medication 1 ea PRN BID PRN PO PARKINSON'S SYMPTOMS; Start 07/10/19 at 19:30; Stop 07/11/19 at 00:51; Status DC Non-Formulary Medication 1 ea 0100 PO Last administered on 07/12/19at 00:51; Start 07/11/19 at 01:00 Non-Formulary Medication 1 ea 1400 PO Last administered on 07/11/19at 13:58; Start 07/11/19 at 14:00 Non-Formulary Medication 1 ea DAILY08 PO Last administered on 07/12/19at 08:00; Start 07/11/19 at 08:00 Non-Formulary Medication 1 ea DAILY08 PO Last administered on 07/12/19at 08:00; Start 07/11/19 at 08:00 Propofol 20 ml @ As Directed STK-MED ONCE IV ; Start 07/11/19 at 07:10; Stop 07/11/19 at 07:10; Status DC Dexamethasone Sodium Phosphate (Decadron) 4 mg STK-MED ONCE .ROUTE ; Start 07/11/19 at 07:10; Stop 07/11/19 at 07:10; Status DC Lidocaine HCl (Lidocaine Pf 2% Vial) 5 ml STK-MED ONCE .ROUTE ; Start 07/11/19 at 07:10; Stop 07/11/19 at 07:11; Status DC Ondansetron HCl (Zofran) 4 mg STK-MED ONCE .ROUTE ; Start 07/11/19 at 07:10; Stop 07/11/19 at 07:11; Status DC Morphine Sulfate (Morphine Sulfate) 1 mg PRN Q10MIN PRN IV SEVERE PAIN 7-10; Start 07/11/19 at 07:30; Stop 07/12/19 at 07:29; Status DC Ringer's Solution 1,000 ml @ 30 mls/hr Q24H IV ; Start 07/11/19 at 07:22; Stop 07/11/19 at 19:21; Status DC Hydromorphone HCl (Dilaudid) 0.5 mg PRN Q10MIN PRN IV SEV PAIN, Second choice; Start 07/11/19 at 07:30; Stop 07/12/19 at 07:29; Status DC Prochlorperazine Edisylate (Compazine) 5 mg PACU PRN PRN IV NAUSEA, MRX1; Start 07/11/19 at 07:30; Stop 07/12/19 at 07:29; Status DC Fentanyl Citrate (Fentanyl 2ml Vial) 100 mcg STK-MED ONCE .ROUTE ; Start 07/11/19 at 07:36; Stop 07/11/19 at 07:36; Status DC Cefazolin Sodium 50 ml @ As Directed STK-MED ONCE IV ; Start 07/11/19 at 08:12; Stop 07/11/19 at 08:12; Status DC Sevoflurane (Ultane) 60 ml STK-MED ONCE IH ; Start 07/11/19 at 08:31; Stop 07/11/19 at 08:31; Status DC Morphine Sulfate 5 mg/Ketorolac Tromethamine 30 mg/Ropivacaine 60 ml/Epinephrine HCl 0.5 mg/Sodium Chloride 100 ml @ 100 mls/hr 1X ONCE INT ART Last administered on 07/11/19at 10:20; Start 07/11/19 at 06:00; Stop 07/11/19 at 09:07; Status DC Ephedrine Sulfate (ePHEDrine PF IN SALINE SYRINGE) 50 mg STK-MED ONCE IV ; Start 07/11/19 at 09:12; Stop 07/11/19 at 09:12; Status DC Sevoflurane (Ultane) 90 ml STK-MED ONCE IH ; Start 07/11/19 at 09:14; Stop 07/11 at 09:14; Status DC Cefazolin Sodium (Ancef) 1 gm STK-MED ONCE .ROUTE ; Start 07/11/19 at 09:17; Stop 07/11/19 at 09:17; Status DC Fentanyl Citrate (Fentanyl 2ml Vial) 100 mcg STK-MED ONCE .ROUTE ; Start 07/11/19 at 09:47; Stop 07/11/19 at 09:47; Status DC Cefazolin Sodium 50 ml @ 100 mls/hr 1X PREOP PRN IV PRIOR TO PROCEDURE Last administered on 07/11/19at 09:58; Start 07/12/19 at 06:00; Stop 07/11/19 at 11:25; Status DC Oxycodone HCl (Roxicodone) 5 mg PRN Q3HRS PRN PO PAIN; Start 07/11/19 at 10:45 Morphine Sulfate (Morphine Sulfate) 2 mg PRN Q1HR PRN IV PAIN; Start 07/11/19 at 10:45 Fentanyl Citrate (Fentanyl 2ml Vial) 25 mcg PRN Q1HR PRN IV PAIN; Start 07/11/19 at 10:45 Senna/Docusate Sodium (Senna Plus) 1 tab DAILY PO Last administered on at 08:55; Start 07/12/19 at 09:00 Polyethylene Glycol (miraLAX PACKET) 17 gm PRN DAILY PRN PO CONSTIPATION; Start 07/11/19 at 10:45 Ondansetron HCl (Zofran) 4 mg PRN Q4HRS PRN IV NAUSEA/VOMITING; Start 07/11/19 at 10:45 Magnesium Hydroxide (Milk Of Magnesia) 2,400 mg 1X PRN PRN PO CONSTIPATION; Start 07/12/19 at 06:00; Stop 07/13/19 at 05:59 Bisacodyl (Dulcolax Supp) 10 mg 1X PRN PRN [place] CONSTIPATION; Start 07/12/19 at 16:00; Stop 07/13/19 at 15:59 Acetaminophen/ Hydrocodone Bitart (Lortab 7.5/325) 1 tab PRN Q4HRS PRN PO PAIN Last administered on 07/11/19at 21:01; Start 07/11/19 at 10:45 Dextrose (Dextrose 50%-Water Syringe) 12.5 gm PRN Q15MIN PRN IV SEE COMMENTS; Start 07/11/19 at 10:45 Dextrose 250 ml PRN Q15MIN PRN IV SEE COMMENTS; Start 07/11/19 at 10:45 Cefazolin Sodium (Ancef) 1 gm Q6H IVP Last administered on 07/12/19at 02:35; Start 07/11/19 at 14:00; Stop 07/12/19 at 02:01; Status DC Rivaroxaban (Xarelto) 10 mg DAILYWSUP PO Last administered on 07/11/19at 16:53; Start 07/11/19 at 17:00; Stop 08/22/19 at 16:59 Ringer's Solution 1,000 ml @ 120 mls/hr Q8H20M IV Last administered on 07/12/19at 08:57; Start 07/11/19 at 11:45 Carbidopa/Levodopa (Sinemet 25/100) 1 tab PRN BID PRN PO TREMORS; Start 07/11/19 at 14:45 Vitamin D (Vitamin D3) 2,000 unit DAILY PO Last administered on 07/12/19at 08:55; Start 07/12/19 at 09:00 Citalopram Hydrobromide (CeleXA) 10 mg DAILY PO ; Start 07/12/19 at 09:00; Status Cancel Cyanocobalamin (Vitamin B-12) 5,000 mcg DAILY PO Last administered on 07/12/19at 09:27; Start 07/12/19 at 09:00 Non-Formulary Medication (Carbidopa/ Levodopa (Rytary ER 61.25 mg-245 mg Cap)) 1 each 5XDAY PO ; Start 07/11/19 at 18:00; Stop 07/11/19 at 14:44; Status DC Non-Formulary Medication (Meloxicam ) 1 tab DAILY PO ; Start 07/12/19 at 09:00; Stop 07/11/19 at 14:44; Status DC Non-Formulary Medication (Pantoprazole Sodium (Protonix)) 40 mg DAILY PO ; Start 07/12/19 at 09:00; Stop 07/11/19 at 14:44; Status DC Non-Formulary Medication (Rasagiline Mesylate (Azilect)) 1 mg DAILY PO ; Start 07/12/19 at 09:00; Stop 07/11/19 at 14:44; Status DC Non-Formulary Medication (Tolterodine Tartrate (Tolterodine Tartrate Er)) 4 mg DAILY PO ; Start 07/12/19 at 09:00; Stop 07/11/19 at 14:44; Status DC Active Scripts Active Reported Rytary ER 48.75 mg-195 mg Cap (Carbidopa/Levodopa) 1 Each Capsule.er 1 Each PO 5XDAY Rytary ER 61.25 mg-245 mg Cap (Carbidopa/Levodopa) 1 Each Capsule.er 1 Each PO 5XDAY Protonix (Pantoprazole Sodium) 20 Mg Tablet.dr 40 Mg PO DAILY Azilect (Rasagiline Mesylate) 1 Mg Tablet 1 Mg PO DAILY Meloxicam 15 Mg Tablet 1 Tab PO DAILY Citalopram Hbr (Citalopram Hydrobromide) 10 Mg Tablet 1 Tab PO DAILY Sinemet 25-100 Mg Tablet (Carbidopa/Levodopa) 1 Each Tablet 1 Tab PO PRN BID PRN Vitamin B-12 (Cyanocobalamin (Vitamin B-12)) 1,000 Mcg Tablet 5,000 Mcg PO DAILY Vitamin D3 (Cholecalciferol (Vitamin D3)) 1,000 Unit Tablet 2,000 Unit PO DAILY Tolterodine Tartrate Er (Tolterodine Tartrate) 4 Mg Cap.er.24h 4 Mg PO DAILY Women's Daily Caplet (Multivits,Ca,Minerals/Iron/Fa) 1 Each Tablet 1 Each PO DAILY Megared [place]-3 Krill Oil Sfgl (Krill/Om-3/Dha/Epa/Phospho/Ast) 1 Each Capsule 1 Each PO BID Vitals/I & O Vital Sign - Last 24 Hours 07/11/19 07/11/19 07/11/19 07/11/19 10:45 11:00 11:15 11:37 Temp 97.5 97.5 97.5 97.7 97.5 97.5 97.5 97.7 Pulse 80 70 70 73 Resp 17 16 16 16 B/P (MAP) 109/48 114/53 128/59 104/61 (75) Pulse Ox 95 92 98 93 O2 Delivery Room Air Room Air Room Air Nasal Cannula Simple Mask O2 Flow Rate 2.0 07/11/19 07/11/19 07/11/19 07/11/19 11:39 11:55 12:10 12:56 Pulse 72 74 75 78 B/P (MAP) 117/57 (77) 57/36 (43) 105/56 (72) 87/24 (45) Pulse Ox 99 95 97 96 O2 Delivery Nasal Cannula Nasal Cannula Nasal Cannula Nasal Cannula O2 Flow Rate 2.0 2.0 2.0 2.0 07/11/19 07/11/19 07/11/19 07/11/19 13:16 13:59 14:59 19:00 Temp 98.1 98.1 Pulse 76 88 86 90 Resp 16 B/P (MAP) 109/43 (65) 112/87 (95) 127/44 (71) 126/64 (84) Pulse Ox 96 96 94 95 O2 Delivery Nasal Cannula Nasal Cannula Nasal Cannula Room Air O2 Flow Rate 2.0 2.0 2.0 07/11/19 07/11/19 07/12/19 07/12/19 20:00 22:35 00:15 02:47 Temp 98.4 97.5 98.4 97.5 Pulse 77 65 Resp 16 16 B/P (MAP) 118/65 (82) 91/52 (65) Pulse Ox 96 98 O2 Delivery Room Air Room Air Room Air Room Air 07/12/19 07/12/19 07:00 07:07 Temp 97.6 97.6 Pulse 67 Resp 16 B/P (MAP) 101/53 (69) Pulse Ox 96 O2 Delivery Room Air Room Air Intake and Output 07/11/19 07/11/19 07/12/19 15:00 23:00 07:00 Intake Total 250 ml Output Total 150 ml 800 ml Balance -150 ml -550 ml LEONEL TOSCANO MD Jul 12, 2019 10:44
[2019-07-12 11:00] VITALS: BP 80/38
--- NOTE | 2019-07-12 11:08 | NUR ---
Patients blood pressure is 80/40, pulse 68, patient is asymptomatic. Notified Dr. Dupree, new order received for 1L NS over 2 hours.
[2019-07-12] MEDS ORDERED: IV NORMAL SALINE 1000ML BAG 1,000 ML IV ONE (11:15)
[2019-07-12] MEDS ORDERED: IV NORMAL SALINE 1000ML BAG 1,000 ML IV SCH (11:15)
[2019-07-12] MEDS: CITALOPRAM 10 MG PO SCH (13:57)
--- NOTE | 2019-07-12 13:57 | NUR ---
SS following for discharge planning. SS reviewed pt chart. Pt is from home and is currently on room air. PT/OT recommended group home unit at discharge. SS met with pt to discuss group home unit and discharge planning. Pt declined [facility] and all group home units in [place] and requested referral be phoned and faxed to [facility], ; fax [phone]. SS phoned and faxed referral. SS will await acceptance decision and will proceed accordingly.
[2019-07-12 15:00] VITALS: BP 107/42
[2019-07-12] MEDS ORDERED: IV NORMAL SALINE 1000ML BAG 750 ML IV ONE (15:30)
[2019-07-12] MEDS: RIVAROXABAN 10 MG TABLET. PO SCH (15:34)
[2019-07-12] MEDS ORDERED: BISACODYL 10 MG SUPP.RECT. PR PRN (16:00)
[2019-07-12 19:00] VITALS: BP 101/79
[2019-07-12 23:00] VITALS: BP 122/61
[2019-07-13] MEDS: CARBIDOPA PO SCH (00:31)
[2019-07-13] MEDS: LEVO PO SCH (00:31)
[2019-07-13 03:00] VITALS: BP 115/53
[2019-07-13] MEDS: RYTARY PO SCH ×11 (05:31→22:13)
[2019-07-13] MEDS: IV RINGERS,LACTATED 1000ML 1,000 ML IV SCH ×3 (05:33→22:11)
[2019-07-13 06:17] LABS: BASO % 0 % (0-3); EOS # 0.3 x10^3/uL (0.0-0.7); EOS % 4 % (0-3); HEMATOCRIT 29.2 % (36.0-47.0); LYMPH # 2.1 x10^3/uL (1.0-4.8); LYMPH % 31 % (24-48); MEAN CORPUSCULAR HEMOGLOBIN 31 pg (25-35); MEAN CORPUSCULAR HGB CONC 34 g/dL (31-37); MEAN CORPUSCULAR VOLUME 91 fL (79-100); MONO # 0.6 x10^3/uL (0.0-1.1); MONO % 9 % (0-9); NEUT # 3.8 x10^3/uL (1.8-7.7); NEUT % 56 % (31-73); PLATELET COUNT 187 x10^3/uL (140-400); RED BLOOD COUNT 3.19 x10^6/uL (3.50-5.40); RED CELL DISTRIBUTION WIDTH 13.8 % (11.5-14.5); WHITE BLOOD COUNT 6.7 x10^3/uL (4.0-11.0)
[2019-07-13 06:40] LABS: ALBUMIN 2.5 g/dL (3.4-5.0); ALBUMIN/GLOBULIN RATIO 0.8 (1.0-1.7); ALK PHOS 50 U/L (46-116); ANION GAP 6 (6-14); AST (SGOT) 17 U/L (15-37); BLOOD UREA NITROGEN 3 mg/dL (7-20); BUN/CREATININE RATIO 6 (6-20); CALCIUM 8.3 mg/dL (8.5-10.1); CARBON DIOXIDE 30 mmol/L (21-32); CHLORIDE 106 mmol/L (98-107); CREATININE 0.5 mg/dL (0.6-1.0); GFR 123.8; GLUCOSE 97 mg/dL (70-99); SODIUM 142 mmol/L (136-145); TOTAL BILIRUBIN 0.9 mg/dL (0.2-1.0); TOTAL PROTEIN 5.5 g/dL (6.4-8.2)
[2019-07-13 07:00] VITALS: BP 110/81
[2019-07-13 07:01] LABS: ALT (SGPT) < 6 U/L (14-59)
[2019-07-13] MEDS: CYANOCOBALAMIN (VITAMIN B-12) 1,000 MCG TABLET. PO SCH (08:15)
[2019-07-13] MEDS: RASAGILINE 1 MG PO SCH (08:16)
[2019-07-13] MEDS: CHOLECALCIFEROL (VITAMIN D3) 1,000 UNIT TABLET PO SCH (08:16)
[2019-07-13] MEDS: DETROL 4 MG PO SCH (08:16)
[2019-07-13] MEDS: SENNOSIDES/DOCUSATE 8.6/50MG TABLET. PO SCH (08:16)
--- NOTE | 2019-07-13 10:48 | PDOC ---
PROGRESS NOTES Chief Complaint Chief Complaint Transverse fracture of the mid right femoral neck Parkinson's disease perative Note Operative Note Date of surgery: 07/11/2019 Preoperative diagnosis: Displaced basicervical right femoral neck fracture Postoperative diagnosis: Displaced mid femoral neck fracture Operative procedure: Right hip hemiarthroplasty Surgeon: Patricia Anesthesia: Gen. Estimated blood loss: 150 mL 29 min pt exam, chart review, > 50% of time spent with exam, chart review, pt care coordination History of Present Illness History of Present Illness surg today feels well a lot of movement of trunk, parkinsons stable per patient cont current PT and OT, consider acute rehab Vitals Vitals Vital Signs Date Time Temp Pulse Resp B/P (MAP) Pulse Ox O2 Delivery O2 Flow Rate FiO2 07/13/19 08:00 Room Air 07/13/19 07:00 98.1 70 18 110/81 (91) 92 98.1 Physical Exam Physical Exam RODERICK: Supple, no JVD, no thyromegaly was noted. LUNGS: Clear to auscultation in all lung colon without rhonchi or wheezing. HEART: RRR, S1, S2 present. Peripheral pulses intact, no obvious murmurs were noted. ABDOMEN: Soft, nontender. Positive bowel sounds no organomegaly, normal bowel sounds. EXTREMITIES: Without any cyanosis, clubbing, or edema. Pedal pulses intact, NEUROLOGIC: She has typical tremors consistent with Parkinson's. PSYCHIATRIC: Normal affect, normal mood. Stable. General: Cooperative Heart: Regular rate Lungs: Clear Abdomen: Normal bowel sounds, Soft, No tenderness Extremities: No cyanosis Labs LABS Laboratory Tests Test 07/13/19 05:00 White Blood Count 6.7 x10^3/uL (4.0-11.0) Red Blood Count 3.19 x10^6/uL (3.50-5.40) Hemoglobin 10.0 g/dL (12.0-15.5) Hematocrit 29.2 % (36.0-47.0) Mean Corpuscular Volume 91 fL (79-100) Mean Corpuscular Hemoglobin 31 pg (25-35) Mean Corpuscular Hemoglobin Concent 34 g/dL (31-37) Red Cell Distribution Width 13.8 % (11.5-14.5) Platelet Count 187 x10^3/uL (140-400) Neutrophils (%) (Auto) 56 % (31-73) Lymphocytes (%) (Auto) 31 % (24-48) Monocytes (%) (Auto) 9 % (0-9) Eosinophils (%) (Auto) 4 % (0-3) Basophils (%) (Auto) 0 % (0-3) Neutrophils # (Auto) 3.8 x10^3/uL (1.8-7.7) Lymphocytes # (Auto) 2.1 x10^3/uL (1.0-4.8) Monocytes # (Auto) 0.6 x10^3/uL (0.0-1.1) Eosinophils # (Auto) 0.3 x10^3/uL (0.0-0.7) Basophils # (Auto) 0.0 x10^3/uL (0.0-0.2) Sodium Level 142 mmol/L (136-145) Potassium Level 4.0 mmol/L (3.5-5.1) Chloride Level 106 mmol/L (98-107) Carbon Dioxide Level 30 mmol/L (21-32) Anion Gap 6 (6-14) Blood Urea Nitrogen 3 mg/dL (7-20) Creatinine 0.5 mg/dL (0.6-1.0) Estimated GFR (Cockcroft-Gault) 123.8 BUN/Creatinine Ratio 6 (6-20) Glucose Level 97 mg/dL (70-99) Calcium Level 8.3 mg/dL (8.5-10.1) Total Bilirubin 0.9 mg/dL (0.2-1.0) Aspartate Amino Transf (AST/SGOT) 17 U/L (15-37) Alanine Aminotransferase (ALT/SGPT) < 6 U/L (14-59) Alkaline Phosphatase 50 U/L (46-116) Total Protein 5.5 g/dL (6.4-8.2) Albumin 2.5 g/dL (3.4-5.0) Albumin/Globulin Ratio 0.8 (1.0-1.7) Assessment and Plan Assessmemt and Plan Problems Medical Problems: (1) Closed right hip fracture Status: Acute Comment Review of Relevant I have reviewed the following items nichole (where applicable) has been applied. Labs Laboratory Tests Test 07/12/19 04:35 07/13/19 05:00 Hemoglobin 9.9 g/dL (12.0-15.5) 10.0 g/dL (12.0-15.5) Hematocrit 28.8 % (36.0-47.0) 29.2 % (36.0-47.0) Mean Corpuscular Hemoglobin Concent 34 g/dL (31-37) 34 g/dL (31-37) White Blood Count 6.7 x10^3/uL (4.0-11.0) Red Blood Count 3.19 x10^6/uL (3.50-5.40) Mean Corpuscular Volume 91 fL (79-100) Mean Corpuscular Hemoglobin 31 pg (25-35) Red Cell Distribution Width 13.8 % (11.5-14.5) Platelet Count 187 x10^3/uL (140-400) Neutrophils (%) (Auto) 56 % (31-73) Lymphocytes (%) (Auto) 31 % (24-48) Monocytes (%) (Auto) 9 % (0-9) Eosinophils (%) (Auto) 4 % (0-3) Basophils (%) (Auto) 0 % (0-3) Neutrophils # (Auto) 3.8 x10^3/uL (1.8-7.7) Lymphocytes # (Auto) 2.1 x10^3/uL (1.0-4.8) Monocytes # (Auto) 0.6 x10^3/uL (0.0-1.1) Eosinophils # (Auto) 0.3 x10^3/uL (0.0-0.7) Basophils # (Auto) 0.0 x10^3/uL (0.0-0.2) Sodium Level 142 mmol/L (136-145) Potassium Level 4.0 mmol/L (3.5-5.1) Chloride Level 106 mmol/L (98-107) Carbon Dioxide Level 30 mmol/L (21-32) Anion Gap 6 (6-14) Blood Urea Nitrogen 3 mg/dL (7-20) Creatinine 0.5 mg/dL (0.6-1.0) Estimated GFR (Cockcroft-Gault) 123.8 BUN/Creatinine Ratio 6 (6-20) Glucose Level 97 mg/dL (70-99) Calcium Level 8.3 mg/dL (8.5-10.1) Total Bilirubin 0.9 mg/dL (0.2-1.0) Aspartate Amino Transf (AST/SGOT) 17 U/L (15-37) Alanine Aminotransferase (ALT/SGPT) < 6 U/L (14-59) Alkaline Phosphatase 50 U/L (46-116) Total Protein 5.5 g/dL (6.4-8.2) Albumin 2.5 g/dL (3.4-5.0) Albumin/Globulin Ratio 0.8 (1.0-1.7) Laboratory Tests Test 07/13/19 05:00 White Blood Count 6.7 x10^3/uL (4.0-11.0) Red Blood Count 3.19 x10^6/uL (3.50-5.40) Hemoglobin 10.0 g/dL (12.0-15.5) Hematocrit 29.2 % (36.0-47.0) Mean Corpuscular Volume 91 fL (79-100) Mean Corpuscular Hemoglobin 31 pg (25-35) Mean Corpuscular Hemoglobin Concent 34 g/dL (31-37) Red Cell Distribution Width 13.8 % (11.5-14.5) Platelet Count 187 x10^3/uL (140-400) Neutrophils (%) (Auto) 56 % (31-73) Lymphocytes (%) (Auto) 31 % (24-48) Monocytes (%) (Auto) 9 % (0-9) Eosinophils (%) (Auto) 4 % (0-3) Basophils (%) (Auto) 0 % (0-3) Neutrophils # (Auto) 3.8 x10^3/uL (1.8-7.7) Lymphocytes # (Auto) 2.1 x10^3/uL (1.0-4.8) Monocytes # (Auto) 0.6 x10^3/uL (0.0-1.1) Eosinophils # (Auto) 0.3 x10^3/uL (0.0-0.7) Basophils # (Auto) 0.0 x10^3/uL (0.0-0.2) Sodium Level 142 mmol/L (136-145) Potassium Level 4.0 mmol/L (3.5-5.1) Chloride Level 106 mmol/L (98-107) Carbon Dioxide Level 30 mmol/L (21-32) Anion Gap 6 (6-14) Blood Urea Nitrogen 3 mg/dL (7-20) Creatinine 0.5 mg/dL (0.6-1.0) Estimated GFR (Cockcroft-Gault) 123.8 BUN/Creatinine Ratio 6 (6-20) Glucose Level 97 mg/dL (70-99) Calcium Level 8.3 mg/dL (8.5-10.1) Total Bilirubin 0.9 mg/dL (0.2-1.0) Aspartate Amino Transf (AST/SGOT) 17 U/L (15-37) Alanine Aminotransferase (ALT/SGPT) < 6 U/L (14-59) Alkaline Phosphatase 50 U/L (46-116) Total Protein 5.5 g/dL (6.4-8.2) Albumin 2.5 g/dL (3.4-5.0) Albumin/Globulin Ratio 0.8 (1.0-1.7) Medications Current Medications Ketorolac Tromethamine (Toradol 30mg Vial) 30 mg 1X ONCE IV Last administered on 07/10/19at 17:00; Start 07/10/19 at 16:30; Stop 07/10/19 at 16:33; Status DC Ondansetron HCl (Zofran) 4 mg PRN Q8HRS PRN IV NAUSEA/VOMITING Last administered on 07/10/19at 17:36; Start 07/10/19 at 17:30; Stop 07/11/19 at 17:29; Status DC Morphine Sulfate (Morphine Sulfate) 2 mg PRN Q2HR PRN IV PAIN; Start 07/10/19 at 17:30; Stop 07/10/19 at 17:26; Status DC Sodium Chloride 1,000 ml @ 75 mls/hr [id number] IV Last administered on 07/10/19at 17:36; Start 07/10/19 at 17:20; Stop 07/11/19 at 17:19; Status DC Fentanyl Citrate (Fentanyl 2ml Vial) 50 mcg PRN Q2HR PRN IV PAIN SEVERE Last administered on 07/11/19at 05:05; Start 07/10/19 at 17:30; Stop 07/12/19 at 10:32; Status DC Orphenadrine Citrate (Norflex) 30 mg PRN Q8HRS PRN IV muscle spasm; Start 07/10/19 at 17:30 Non-Formulary Medication 1 ea 5XDAY PO Last administered on 07/13/19at 09:33; Start 07/10/19 at 22:00 Non-Formulary Medication 3 ea DAILY@0600 PO Last administered on 07/13/19at 05:33; Start 07/11/19 at 06:00 Non-Formulary Medication 2 ea TID@1000,1400,2200 PO Last administered on 07/13/19at 09:33; Start 07/10/19 at 22:00 Non-Formulary Medication 1 ea DAILY@1800 PO Last administered on 07/12/19at 17:00; Start 07/11/19 at 18:00 Non-Formulary Medication 1 ea DAILY PO ; Start 07/11/19 at 09:00; Stop 07/11/19 at 00:51; Status DC Non-Formulary Medication 1 ea DAILY PO ; Start 07/11/19 at 09:00; Stop 07/11/19 at 00:51; Status DC Non-Formulary Medication 1 ea DAILY PO ; Start 07/11/19 at 09:00; Stop 07/11/19 at 00:51; Status DC Non-Formulary Medication 1 ea PRN BID PRN PO PARKINSON'S SYMPTOMS; Start 07/10/19 at 19:30; Stop 07/11/19 at 00:51; Status DC Non-Formulary Medication 1 ea 0100 PO Last administered on 07/13/19at 00:31; Start 07/11/19 at 01:00 Non-Formulary Medication 1 ea 1400 PO Last administered on 07/12/19at 13:58; Start 07/11/19 at 14:00 Non-Formulary Medication 1 ea DAILY08 PO Last administered on 07/13/19at 08:17; Start 07/11/19 at 08:00 Non-Formulary Medication 1 ea DAILY08 PO Last administered on 07/13/19at 08:17; Start 07/11/19 at 08:00 Propofol 20 ml @ As Directed STK-MED ONCE IV ; Start 07/11/19 at 07:10; Stop 07/11/19 at 07:10; Status DC Dexamethasone Sodium Phosphate (Decadron) 4 mg STK-MED ONCE .ROUTE ; Start 07/11/19 at 07:10; Stop 07/11/19 at 07:10; Status DC Lidocaine HCl (Lidocaine Pf 2% Vial) 5 ml STK-MED ONCE .ROUTE ; Start 07/11/19 at 07:10; Stop 07/11/19 at 07:11; Status DC Ondansetron HCl (Zofran) 4 mg STK-MED ONCE .ROUTE ; Start 07/11/19 at 07:10; Stop 07/11/19 at 07:11; Status DC Morphine Sulfate (Morphine Sulfate) 1 mg PRN Q10MIN PRN IV SEVERE PAIN 7-10; Start 07/11/19 at 07:30; Stop 07/12/19 at 07:29; Status DC Ringer's Solution 1,000 ml @ 30 mls/hr Q24H IV ; Start 07/11/19 at 07:22; Stop 07/11/19 at 19:21; Status DC Hydromorphone HCl (Dilaudid) 0.5 mg PRN Q10MIN PRN IV SEV PAIN, Second choice; Start 07/11/19 at 07:30; Stop 07/12/19 at 07:29; Status DC Prochlorperazine Edisylate (Compazine) 5 mg PACU PRN PRN IV NAUSEA, MRX1; Start 07/11/19 at 07:30; Stop 07/12/19 at 07:29; Status DC Fentanyl Citrate (Fentanyl 2ml Vial) 100 mcg STK-MED ONCE .ROUTE ; Start 07/11/19 at 07:36; Stop 07/11/19 at 07:36; Status DC Cefazolin Sodium 50 ml @ As Directed STK-MED ONCE IV ; Start 07/11/19 at 08:12; Stop 07/11/19 at 08:12; Status DC Sevoflurane (Ultane) 60 ml STK-MED ONCE IH ; Start 07/11/19 at 08:31; Stop 07/11/19 at 08:31; Status DC Morphine Sulfate 5 mg/Ketorolac Tromethamine 30 mg/Ropivacaine 60 ml/Epinephrine HCl 0.5 mg/Sodium Chloride 100 ml @ 100 mls/hr 1X ONCE INT ART Last administered on 07/11/19at 10:20; Start 07/11/19 at 06:00; Stop 07/11/19 at 09:07; Status DC Ephedrine Sulfate (ePHEDrine PF IN SALINE SYRINGE) 50 mg STK-MED ONCE IV ; Start 07/11/19 at 09:12; Stop 07/11/19 at 09:12; Status DC Sevoflurane (Ultane) 90 ml STK-MED ONCE IH ; Start 07/11/19 at 09:14; Stop 07/11/19 at 09:14; Status DC Cefazolin Sodium (Ancef) 1 gm STK-MED ONCE .ROUTE ; Start 07/11/19 at 09:17; St op 07/11/19 at 09:17; Status DC Fentanyl Citrate (Fentanyl 2ml Vial) 100 mcg STK-MED ONCE .ROUTE ; Start 07/11/19 at 09:47; Stop 07/11/19 at 09:47; Status DC Cefazolin Sodium 50 ml @ 100 mls/hr 1X PREOP PRN IV PRIOR TO PROCEDURE Last administered on 07/11/19at 09:58; Start 07/12/19 at 06:00; Stop 07/11/19 at 11:25; Status DC Oxycodone HCl (Roxicodone) 5 mg PRN Q3HRS PRN PO PAIN, 1ST CHOICE PO Last administered on 07/12/19at 18:07; Start 07/11/19 at 10:45 Morphine Sulfate (Morphine Sulfate) 2 mg PRN Q1HR PRN IV SEVERE PAIN; Start 07/11/19 at 10:45 Fentanyl Citrate (Fentanyl 2ml Vial) 25 mcg PRN Q1HR PRN IV MODERATE PAIN; Start 07/11/19 at 10:45 Senna/Docusate Sodium (Senna Plus) 1 tab DAILY PO Last administered on 07/13/19at 08:17; Start 07/12/19 at 09:00 Polyethylene Glycol (miraLAX PACKET) 17 gm PRN DAILY PRN PO CONSTIPATION; Start 07/11/19 at 10:45 Ondansetron HCl (Zofran) 4 mg PRN Q4HRS PRN IV NAUSEA/VOMITING; Start 07/11/19 at 10:45 Magnesium Hydroxide (Milk Of Magnesia) 2,400 mg 1X PRN PRN PO CONSTIPATION; Start 07/12/19 at 06:00; Stop 07/13/19 at 05:59; Status DC Bisacodyl (Dulcolax Supp) 10 mg 1X PRN PRN NV CONSTIPATION; Start 07/12/19 at 16:00; Stop 07/13/19 at 15:59 Acetaminophen/ Hydrocodone Bitart (Lortab 7.5/325) 1 tab PRN Q4HRS PRN PO PAIN, 2ND CHOICE PO Last administered on 07/11/19at 21:01; Start 07/11/19 at 10:45 Dextrose (Dextrose 50%-Water Syringe) 12.5 gm PRN Q15MIN PRN IV SEE COMMENTS; Start 07/11/19 at 10:45 Dextrose 250 ml PRN Q15MIN PRN IV SEE COMMENTS; Start 07/11/19 at 10:45 Cefazolin Sodium (Ancef) 1 gm Q6H IVP Last administered on 07/12/19at 02:35; Start 07/11/19 at 14:00; Stop 07/12/19 at 02:01; Status DC Rivaroxaban (Xarelto) 10 mg DAILYWSUP PO Last administered on 07/12/19at 15:34; Start 07/11/19 at 17:00; Stop 08/22/19 at 16:59 Ringer's Solution 1,000 ml @ 120 mls/hr Q8H20M IV Last administered on 07/13/19at 05:33; Start 07/11/19 at 11:45 Carbidopa/Levodopa (Sinemet 25/100) 1 tab PRN BID PRN PO TREMORS; Start 07/11/19 at 14:45 Vitamin D (Vitamin D3) 2,000 unit DAILY PO Last administered on 07/13/19at 08:17; Start 07/12/19 at 09:00 Citalopram Hydrobromide (CeleXA) 10 mg DAILY PO ; Start 07/12/19 at 09:00; Status Cancel Cyanocobalamin (Vitamin B-12) 5,000 mcg DAILY PO Last administered on 07/13/19at 08:17; Start 07/12/19 at 09:00 Non-Formulary Medication (Carbidopa/ Levodopa (Rytary ER 61.25 mg-245 mg Cap)) 1 each 5XDAY PO ; Start 07/11/19 at 18:00; Stop 07/11/19 at 14:44; Status DC Non-Formulary Medication (Meloxicam ) 1 tab DAILY PO ; Start 07/12/19 at 09:00; Stop 07/11/19 at 14:44; Status DC Non-Formulary Medication (Pantoprazole Sodium (Protonix)) 40 mg DAILY PO ; Start 07/12/19 at 09:00; Stop 07/11/19 at 14:44; Status DC Non-Formulary Medication (Rasagiline Mesylate (Azilect)) 1 mg DAILY PO ; Start 07/12/19 at 09:00; Stop 07/11/19 at 14:44; Status DC Non-Formulary Medication (Tolterodine Tartrate (Tolterodine Tartrate Er)) 4 mg DAILY PO ; Start 07/12/19 at 09:00; Stop 07/11/19 at 14:44; Status DC Sodium Chloride 1,000 ml @ 500 mls/hr Q2H IV ; Start 07/12/19 at 11:15; Status Cancel Sodium Chloride 1,000 ml @ 500 mls/hr 1X ONCE IV Last administered on 07/12/19at 11:16; Start 07/12/19 at 11:15; Stop 07/12/19 at 13:14; Status DC Sodium Chloride 750 ml @ 375 mls/hr 1X ONCE IV Last administered on 07/12/19at 15:33; Start 07/12/19 at 15:30; Stop 07/12/19 at 17:29; Status DC Active Scripts Active Reported Rytary ER 48.75 mg-195 mg Cap (Carbidopa/Levodopa) 1 Each Capsule.er 1 Each PO 5XDAY Rytary ER 61.25 mg-245 mg Cap (Carbidopa/Levodopa) 1 Each Capsule.er 1 Each PO 5XDAY Protonix (Pantoprazole Sodium) 20 Mg Tablet.dr 40 Mg PO DAILY Azilect (Rasagiline Mesylate) 1 Mg Tablet 1 Mg PO DAILY Meloxicam 15 Mg Tablet 1 Tab PO DAILY Citalopram Hbr (Citalopram Hydrobromide) 10 Mg Tablet 1 Tab PO DAILY Sinemet 25-100 Mg Tablet (Carbidopa/Levodopa) 1 Each Tablet 1 Tab PO PRN BID PRN Vitamin B-12 (Cyanocobalamin (Vitamin B-12)) 1,000 Mcg Tablet 5,000 Mcg PO DAILY Vitamin D3 (Cholecalciferol (Vitamin D3)) 1,000 Unit Tablet 2,000 Unit PO DAILY Tolterodine Tartrate Er (Tolterodine Tartrate) 4 Mg Cap.er.24h 4 Mg PO DAILY Women's Daily Caplet (Multivits,Ca,Minerals/Iron/Fa) 1 Each Tablet 1 Each PO DAILY [facility] [place]-3 Krill Oil Sfgl (Krill/Om-3/Dha/Epa/Phospho/Ast) 1 Each Capsule 1 Each PO BID Vitals/I & O Vital Sign - Last 24 Hours 07/12/19 07/12/19 07/12/19 07/12/19 11:00 15:00 18:07 18:31 Temp 97.5 98.1 97.5 98.1 Pulse 62 68 Resp 16 16 B/P (MAP) 80/38 (52) 107/42 (63) Pulse Ox 95 100 100 100 O2 Delivery Room Air Room Air Room Air Room Air 07/12/19 07/12/19 07/12/19 07/13/19 19:00 20:05 23:00 03:00 Temp 98.5 97.9 97.5 98.5 97.9 97.5 Pulse 84 77 68 Resp 18 18 18 B/P (MAP) 101/79 (86) 122/61 (81) 115/53 (73) Pulse Ox 92 96 95 O2 Delivery Room Air Room Air Room Air Room Air 07/13/19 07/13/19 07:00 08:00 Temp 98.1 98.1 Pulse 70 Resp 18 B/P (MAP) 110/81 (91) Pulse Ox 92 O2 Delivery Room Air Room Air Intake and Output 07/12/19 07/12/19 07/13/19 14:59 22:59 06:59 Intake Total 240 ml Output Total 1750 ml 2450 ml Balance 240 ml -1750 ml -2450 ml LEONEL TOSCANO MD Jul 13, 2019 10:48
[2019-07-13 11:00] VITALS: BP 120/64
--- NOTE | 2019-07-13 12:28 | NUR ---
SS following up with discharge planning. Pt accepted at [facility], ; fax [phone]. SS will continue to follow for discharge planning.
[2019-07-13] MEDS ORDERED: ANTI-COAG MONITOR BY PHARMACY. MC PRN (13:00)
[2019-07-13] MEDS: CITALOPRAM 10 MG PO SCH (13:30)
[2019-07-13 15:00] VITALS: BP 111/45
[2019-07-13] MEDS: RIVAROXABAN 10 MG TABLET. PO SCH (16:59)
[2019-07-13 19:00] VITALS: BP 132/54
[2019-07-13] MEDS: HYDROcodone/APAP 7.5/325MG 1 TAB TABLET PO PRN (20:25)
[2019-07-13 23:00] VITALS: BP 125/53
[2019-07-14] MEDS: CARBIDOPA PO SCH (00:56)
[2019-07-14] MEDS: LEVO PO SCH (00:56)
[2019-07-14 03:23] VITALS: BP 105/29
[2019-07-14] MEDS: RYTARY PO SCH ×8 (06:19→17:27)
[2019-07-14] MEDS: IV RINGERS,LACTATED 1000ML 1,000 ML IV SCH ×2 (06:19→13:58)
[2019-07-14 07:00] VITALS: BP 118/51
[2019-07-14] MEDS: DETROL 4 MG PO SCH (08:27)
[2019-07-14] MEDS: RASAGILINE 1 MG PO SCH (08:27)
[2019-07-14] MEDS: SENNOSIDES/DOCUSATE 8.6/50MG TABLET. PO SCH (09:17)
[2019-07-14] MEDS: CYANOCOBALAMIN (VITAMIN B-12) 1,000 MCG TABLET. PO SCH (09:17)
[2019-07-14] MEDS: CHOLECALCIFEROL (VITAMIN D3) 1,000 UNIT TABLET PO SCH (09:17)
--- NOTE | 2019-07-14 10:23 | PDOC ---
PROGRESS NOTES Chief Complaint Chief Complaint discharge dx \ acute Transverse fracture of the mid right femoral neck mechanical fall Parkinson's disease dyskinesia operative Note Operative Note Date of surgery: 07/11/2019 Preoperative diagnosis: Displaced basicervical right femoral neck fracture Postoperative diagnosis: Displaced mid femoral neck fracture Operative procedure: Right hip hemiarthroplasty Surgeon: Patricia Anesthesia: Gen. Estimated blood loss: 150 mL 29 min pt exam, chart reviewd/c planning , > 50% of time spent with exam, chart review, pt care coordination History of Present Illness History of Present Illness surg today feels well a lot of movement of trunk, parkinsons stable per patient cont current PT and OT, consider acute rehab Vitals Vitals Vital Signs Date Time Temp Pulse Resp B/P (MAP) Pulse Ox O2 Delivery O2 Flow Rate FiO2 07/14/19 08:00 Room Air 07/14/19 07:00 98.1 58 16 118/51 (73) 94 98.1 Physical Exam Physical Exam RODERICK: Supple, no JVD, no thyromegaly was noted. LUNGS: Clear to auscultation in all lung colon without rhonchi or wheezing. HEART: RRR, S1, S2 present. Peripheral pulses intact, no obvious murmurs were noted. ABDOMEN: Soft, nontender. Positive bowel sounds no organomegaly, normal bowel sounds. EXTREMITIES: Without any cyanosis, clubbing, or edema. Pedal pulses intact, NEUROLOGIC: She has typical tremors consistent with Parkinson's. PSYCHIATRIC: Normal affect, normal mood. Stable. General: Alert, Oriented X3, Cooperative, No acute distress Heart: Regular rate, Normal S1, Normal S2 Lungs: Clear Abdomen: Normal bowel sounds, Soft, No tenderness Extremities: No clubbing, No cyanosis, No edema Skin: No significant lesion Assessment and Plan Assessmemt and Plan Problems Medical Problems: (1) Closed right hip fracture Status: Acute Comment Review of Relevant I have reviewed the following items nichole (where applicable) has been applied. Labs Laboratory Tests Test 07/13/19 05:00 White Blood Count 6.7 x10^3/uL (4.0-11.0) Red Blood Count 3.19 x10^6/uL (3.50-5.40) Hemoglobin 10.0 g/dL (12.0-15.5) Hematocrit 29.2 % (36.0-47.0) Mean Corpuscular Volume 91 fL (79-100) Mean Corpuscular Hemoglobin 31 pg (25-35) Mean Corpuscular Hemoglobin Concent 34 g/dL (31-37) Red Cell Distribution Width 13.8 % (11.5-14.5) Platelet Count 187 x10^3/uL (140-400) Neutrophils (%) (Auto) 56 % (31-73) Lymphocytes (%) (Auto) 31 % (24-48) Monocytes (%) (Auto) 9 % (0-9) Eosinophils (%) (Auto) 4 % (0-3) Basophils (%) (Auto) 0 % (0-3) Neutrophils # (Auto) 3.8 x10^3/uL (1.8-7.7) Lymphocytes # (Auto) 2.1 x10^3/uL (1.0-4.8) Monocytes # (Auto) 0.6 x10^3/uL (0.0-1.1) Eosinophils # (Auto) 0.3 x10^3/uL (0.0-0.7) Basophils # (Auto) 0.0 x10^3/uL (0.0-0.2) Sodium Level 142 mmol/L (136-145) Potassium Level 4.0 mmol/L (3.5-5.1) Chloride Level 106 mmol/L (98-107) Carbon Dioxide Level 30 mmol/L (21-32) Anion Gap 6 (6-14) Blood Urea Nitrogen 3 mg/dL (7-20) Creatinine 0.5 mg/dL (0.6-1.0) Estimated GFR (Cockcroft-Gault) 123.8 BUN/Creatinine Ratio 6 (6-20) Glucose Level 97 mg/dL (70-99) Calcium Level 8.3 mg/dL (8.5-10.1) Total Bilirubin 0.9 mg/dL (0.2-1.0) Aspartate Amino Transf (AST/SGOT) 17 U/L (15-37) Alanine Aminotransferase (ALT/SGPT) < 6 U/L (14-59) Alkaline Phosphatase 50 U/L (46-116) Total Protein 5.5 g/dL (6.4-8.2) Albumin 2.5 g/dL (3.4-5.0) Albumin/Globulin Ratio 0.8 (1.0-1.7) Medications Current Medications Ketorolac Tromethamine (Toradol 30mg Vial) 30 mg 1X ONCE IV Last administered on 07/10/19at 17:00; Start 07/10/19 at 16:30; Stop 07/10/19 at 16:33; Status DC Ondansetron HCl (Zofran) 4 mg PRN Q8HRS PRN IV NAUSEA/VOMITING Last administered on 07/10/19at 17:36; Start 07/10/19 at 17:30; Stop 07/11/19 at 17:29; Status DC Morphine Sulfate (Morphine Sulfate) 2 mg PRN Q2HR PRN IV PAIN; Start 07/10/19 at 17:30; Stop 07/10/19 at 17:26; Status DC Sodium Chloride 1,000 ml @ 75 mls/hr [id number] IV Last administered on 07/10/19at 17:36; Start 07/10/19 at 17:20; Stop 07/11/19 at 17:19; Status DC Fentanyl Citrate (Fentanyl 2ml Vial) 50 mcg PRN Q2HR PRN IV PAIN SEVERE Last administered on 07/11/19at 05:05; Start 07/10/19 at 17:30; Stop 07/12/19 at 10:32; Status DC Orphenadrine Citrate (Norflex) 30 mg PRN Q8HRS PRN IV muscle spasm; Start 07/10/19 at 17:30 Non-Formulary Medication 1 ea 5XDAY PO Last administered on 07/14/19at 09:19; Start 07/10/19 at 22:00 Non-Formulary Medication 3 ea DAILY@0600 PO Last administered on 07/14/19at 06:19; Start 07/11/19 at 06:00 Non-Formulary Medication 2 ea TID@1000,1400,2200 PO Last administered on 07/14/19at 09:19; Start 07/10/19 at 22:00 Non-Formulary Medication 1 ea DAILY@1800 PO Last administered on 07/13/19at 22:13; Start 07/11/19 at 18:00 Non-Formulary Medication 1 ea DAILY PO ; Start 07/11/19 at 09:00; Stop 07/11/19 at 00:51; Status DC Non-Formulary Medication 1 ea DAILY PO ; Start 07/11/19 at 09:00; Stop 07/11/19 at 00:51; Status DC Non-Formulary Medication 1 ea DAILY PO ; Start 07/11/19 at 09:00; Stop 07/11/19 at 00:51; Status DC Non-Formulary Medication 1 ea PRN BID PRN PO PARKINSON'S SYMPTOMS; Start 07/10/19 at 19:30; Stop 07/11/19 at 00:51; Status DC Non-Formulary Medication 1 ea 0100 PO Last administered on 07/14/19at 00:56; Start 07/11/19 at 01:00 Non-Formulary Medication 1 ea 1400 PO Last administered on 07/13/19at 13:30; Start 07/11/19 at 14:00 Non-Formulary Medication 1 ea DAILY08 PO Last administered on 07/14/19at 08:27; Start 07/11/19 at 08:00 Non-Formulary Medication 1 ea DAILY08 PO Last administered on 07/14/19at 08:27; Start 07/11/19 at 08:00 Propofol 20 ml @ As Directed STK-MED ONCE IV ; Start 07/11/19 at 07:10; Stop 07/11/19 at 07:10; Status DC Dexamethasone Sodium Phosphate (Decadron) 4 mg STK-MED ONCE .ROUTE ; Start at 07:10; Stop 07/11/19 at 07:10; Status DC Lidocaine HCl (Lidocaine Pf 2% Vial) 5 ml STK-MED ONCE .ROUTE ; Start 07/11/19 at 07:10; Stop 07/11/19 at 07:11; Status DC Ondansetron HCl (Zofran) 4 mg STK-MED ONCE .ROUTE ; Start 07/11/19 at 07:10; Stop 07/11/19 at 07:11; Status DC Morphine Sulfate (Morphine Sulfate) 1 mg PRN Q10MIN PRN IV SEVERE PAIN 7-10; Start 07/11/19 at 07:30; Stop 07/12/19 at 07:29; Status DC Ringer's Solution 1,000 ml @ 30 mls/hr Q24H IV ; Start 07/11/19 at 07:22; Stop 07/11/19 at 19:21; Status DC Hydromorphone HCl (Dilaudid) 0.5 mg PRN Q10MIN PRN IV SEV PAIN, Second choice; Start 07/11/19 at 07:30; Stop 07/12/19 at 07:29; Status DC Prochlorperazine Edisylate (Compazine) 5 mg PACU PRN PRN IV NAUSEA, MRX1; Start 07/11/19 at 07:30; Stop 07/12/19 at 07:29; Status DC Fentanyl Citrate (Fentanyl 2ml Vial) 100 mcg STK-MED ONCE .ROUTE ; Start 07/11/19 at 07:36; Stop 07/11/19 at 07:36; Status DC Cefazolin Sodium 50 ml @ As Directed STK-MED ONCE IV ; Start 07/11/19 at 08:12; Stop 07/11/19 at 08:12; Status DC Sevoflurane (Ultane) 60 ml STK-MED ONCE IH ; Start 07/11/19 at 08:31; Stop 07/11/19 at 08:31; Status DC Morphine Sulfate 5 mg/Ketorolac Tromethamine 30 mg/Ropivacaine 60 ml/Epinephrine HCl 0.5 mg/Sodium Chloride 100 ml @ 100 mls/hr 1X ONCE INT ART Last administered on 07/11/19at 10:20; Start 07/11/19 at 06:00; Stop 07/11/19 at 09:07; Status DC Ephedrine Sulfate (ePHEDrine PF IN SALINE SYRINGE) 50 mg STK-MED ONCE IV ; Start 07/11/19 at 09:12; Stop 07/11/19 at 09:12; Status DC Sevoflurane (Ultane) 90 ml STK-MED ONCE IH ; Start 07/11/19 at 09:14; Stop 07/11/19 at 09:14; Status DC Cefazolin Sodium (Ancef) 1 gm STK-MED ONCE .ROUTE ; Start 07/11/19 at 09:17; Stop 07/11/19 at 09:17; Status DC Fentanyl Citrate (Fentanyl 2ml Vial) 100 mcg STK-MED ONCE .ROUTE ; Start 07/11/19 at 09:47; Stop 07/11/19 at 09:47; Status DC Cefazolin Sodium 50 ml @ 100 mls/hr 1X PREOP PRN IV PRIOR TO PROCEDURE Last administered on 07/11/19at 09:58; Start 07/12/19 at 06:00; Stop 07/11/19 at 11:25; Status DC Oxycodone HCl (Roxicodone) 5 mg PRN Q3HRS PRN PO PAIN, 1ST CHOICE PO Last administered on 07/12/19at 18:07; Start 07/11/19 at 10:45 Morphine Sulfate (Morphine Sulfate) 2 mg PRN Q1HR PRN IV SEVERE PAIN; Start 07/11/19 at 10:45 Fentanyl Citrate (Fentanyl 2ml Vial) 25 mcg PRN Q1HR PRN IV MODERATE PAIN; Start 07/11/19 at 10:45 Senna/Docusate Sodium (Senna Plus) 1 tab DAILY PO Last administered on 07/14/19at 09:19; Start 07/12/19 at 09:00 Polyethylene Glycol (miraLAX PACKET) 17 gm PRN DAILY PRN PO CONSTIPATION; Start 07/11/19 at 10:45 Ondansetron HCl (Zofran) 4 mg PRN Q4HRS PRN IV NAUSEA/VOMITING; Start 07/11/19 at 10:45 Magnesium Hydroxide (Milk Of Magnesia) 2,400 mg 1X PRN PRN PO CONSTIPATION; Start 07/12/19 at 06:00; Stop 07/13/19 at 05:59; Status DC Bisacodyl (Dulcolax Supp) 10 mg 1X PRN PRN [place] CONSTIPATION; Start 07/12/19 at 16:00; Stop 07/13/19 at 15:59; Status DC Acetaminophen/ Hydrocodone Bitart (Lortab 7.5/325) 1 tab PRN Q4HRS PRN PO PAIN, 2ND CHOICE PO Last administered on 07/13/19at 20:25; Start 07/11/19 at 10:45 Dextrose (Dextrose 50%-Water Syringe) 12.5 gm PRN Q15MIN PRN IV SEE COMMENTS; Start 07/11/19 at 10:45 Dextrose 250 ml PRN Q15MIN PRN IV SEE COMMENTS; Start 07/11/19 at 10:45 Cefazolin Sodium (Ancef) 1 gm Q6H IVP Last administered on 07/12/19at 02:35; Start 07/11/19 at 14:00; Stop 07/12/19 at 02:01; Status DC Rivaroxaban (Xarelto) 10 mg DAILYWSUP PO Last administered on 07/13/19at 16:59; Start 07/11/19 at 17:00; Stop 08/22/19 at 16:59 Ringer's Solution 1,000 ml @ 120 mls/hr Q8H20M IV Last administered on 07/14/19at 06:19; Start 07/11/19 at 11:45 Carbidopa/Levodopa (Sinemet 25/100) 1 tab PRN BID PRN PO TREMORS; Start 07/11/19 at 14:45 Vitamin D (Vitamin D3) 2,000 unit DAILY PO Last administered on 07/14/19at 09:19; Start 07/12/19 at 09:00 Citalopram Hydrobromide (CeleXA) 10 mg DAILY PO ; Start 07/12/19 at 09:00; Status Cancel Cyanocobalamin (Vitamin B-12) 5,000 mcg DAILY PO Last administered on 07/14/19at 09:19; Start 07/12/19 at 09:00 Non-Formulary Medication (Carbidopa/ Levodopa (Rytary ER 61.25 mg-245 mg Cap)) 1 each 5XDAY PO ; Start 07/11/19 at 18:00; Stop 07/11/19 at 14:44; Status DC Non-Formulary Medication (Meloxicam ) 1 tab DAILY PO ; Start 07/12/19 at 09:00; Stop 07/11/19 at 14:44; Status DC Non-Formulary Medication (Pantoprazole Sodium (Protonix)) 40 mg DAILY PO ; Start 07/12/19 at 09:00; Stop 07/11/19 at 14:44; Status DC Non-Formulary Medication (Rasagiline Mesylate (Azilect)) 1 mg DAILY PO ; Start 07/12/19 at 09:00; Stop 07/11/19 at 14:44; Status DC Non-Formulary Medication (Tolterodine Tartrate (Tolterodine Tartrate Er)) 4 mg DAILY PO ; Start 07/12/19 at 09:00; Stop 07/11/19 at 14:44; Status DC Sodium Chloride 1,000 ml @ 500 mls/hr Q2H IV ; Start 07/12/19 at 11:15; Status Cancel Sodium Chloride 1,000 ml @ 500 mls/hr 1X ONCE IV Last administered on 07/12/19at 11:16; Start 07/12/19 at 11:15; Stop 07/12/19 at 13:14; Status DC Sodium Chloride 750 ml @ 375 mls/hr 1X ONCE IV Last administered on 07/12/19at 15:33; Start 07/12/19 at 15:30; Stop 07/12/19 at 17:29; Status DC Info (Anti-Coagulation Monitoring By Pharmacy) 1 each PRN DAILY PRN MC SEE COMMENTS Last administered on 07/13/19at 16:06; Start 07/13/19 at 13:00 Active Scripts Active Reported Rytary ER 48.75 mg-195 mg Cap (Carbidopa/Levodopa) 1 Each Capsule.er 1 Each PO 5XDAY Rytary ER 61.25 mg-245 mg Cap (Carbidopa/Levodopa) 1 Each Capsule.er 1 Each PO 5XDAY Protonix (Pantoprazole Sodium) 20 Mg Tablet.dr 40 Mg PO DAILY Azilect (Rasagiline Mesylate) 1 Mg Tablet 1 Mg PO DAILY Meloxicam 15 Mg Tablet 1 Tab PO DAILY Citalopram Hbr (Citalopram Hydrobromide) 10 Mg Tablet 1 Tab PO DAILY Sinemet 25-100 Mg Tablet (Carbidopa/Levodopa) 1 Each Tablet 1 Tab PO PRN BID PRN Vitamin B-12 (Cyanocobalamin (Vitamin B-12)) 1,000 Mcg Tablet 5,000 Mcg PO DAILY Vitamin D3 (Cholecalciferol (Vitamin D3)) 1,000 Unit Tablet 2,000 Unit PO DAILY Tolterodine Tartrate Er (Tolterodine Tartrate) 4 Mg Cap.er.24h 4 Mg PO DAILY Women's Daily Caplet (Multivits,Ca,Minerals/Iron/Fa) 1 Each Tablet 1 Each PO DAILY Megared [place]-3 Krill Oil Sfgl (Krill/Om-3/Dha/Epa/Phospho/Ast) 1 Each Capsule 1 Each PO BID Vitals/I & O Vital Sign - Last 24 Hours 07/13/19 07/13/19 07/13/19 07/13/19 11:00 15:00 19:00 20:00 Temp 98.0 98.3 98.3 98.0 98.3 98.3 Pulse 71 72 84 Resp 18 20 18 B/P (MAP) 120/64 (82) 111/45 (67) 132/54 (80) Pulse Ox 93 93 90 O2 Delivery Room Air Room Air Room Air Room Air 07/13/19 07/13/19 07/13/19 07/14/19 20:25 21:44 23:00 03:23 Temp 98.2 97.5 98.2 97.5 Pulse 81 59 Resp 20 18 18 B/P (MAP) 125/53 (77) 105/29 (54) Pulse Ox 90 91 90 O2 Delivery Room Air Room Air Room Air Room Air 07/14/19 07/14/19 07:00 08:00 Temp 98.1 98.1 Pulse 58 Resp 16 B/P (MAP) 118/51 (73) Pulse Ox 94 O2 Delivery Room Air Room Air Intake and Output 07/13/19 07/13/19 07/14/19 14:59 22:59 06:59 Intake Total 200 ml 220 ml 300 ml Output Total 1700 ml 500 ml Balance -1500 ml 220 ml -200 ml LEONEL TOSCANO MD Jul 14, 2019 10:23
[2019-07-14 11:00] VITALS: BP 147/71
--- NOTE | 2019-07-14 12:38 | PDOC3 ---
Discharge Summary Date of Admission: Jul 10, 2019 Date of Discharge: Jul 14, 2019 Follow-Up: 1-2 days Admitting Diagnosis comment: discharge dx \ acute Transverse fracture of the mid right femoral neck mechanical fall Parkinson's disease dyskinesia operative Note Operative Note Date of surgery: 07/11/2019 Preoperative diagnosis: Displaced basicervical right femoral neck fracture Postoperative diagnosis: Displaced mid femoral neck fracture Operative procedure: Right hip hemiarthroplasty Surgeon: Patricia Anesthesia: Gen. Estimated blood loss: 150 mL 29 min pt exam, chart reviewd/c planning , > 50% of time spent with exam, chart review, pt care coordination History of Present Illness History of Present Illness feels well a lot of movement of trunk, parkinsons stable per patient cont current PT and OT, snf acute rehab Vitals Vitals Vital Signs Date Time Temp Pulse Resp B/P (MAP) Pulse Ox O2 Delivery O2 Flow Rate FiO2 07/14/19 08:00 Room Air 07/14/19 07:00 98.1 58 16 118/51 (73) 94 98.1 Physical Exam Physical Exam RODERICK: Supple, no JVD, no thyromegaly was noted. LUNGS: Clear to auscultation in all lung colon without rhonchi or wheezing. HEART: RRR, S1, S2 present. Peripheral pulses intact, no obvious murmurs were noted. ABDOMEN: Soft, nontender. Positive bowel sounds no organomegaly, normal bowel sounds. EXTREMITIES: Without any cyanosis, clubbing, or edema. Pedal pulses intact, NEUROLOGIC: She has typical tremors consistent with Parkinson's. PSYCHIATRIC: Normal affect, normal mood. Stable. General: Alert, Oriented X3, Cooperative, No acute distress Heart: Regular rate, Normal S1, Normal S2 Lungs: Clear Abdomen: Normal bowel sounds, Soft, No tenderness Extremities: No clubbing, No cyanosis, No edema Skin: No significant lesion FINAL DIAGNOSIS Problems Medical Problems: (1) Closed right hip fracture Status: Acute Brief Hospital Course Ms. Rock is a 63 old [sex] who presented with [hip fx ] CONDITION AT DISCHARGE: Improved Discharge Medications Current Medications Ketorolac Tromethamine (Toradol 30mg Vial) 30 mg 1X ONCE IV Last administered on 07/10/19at 17:00; Start 07/10/19 at 16:30; Stop 07/10/19 at 16:33; Status DC Ondansetron HCl (Zofran) 4 mg PRN Q8HRS PRN IV NAUSEA/VOMITING Last administered on 07/10/19at 17:36; Start 07/10/19 at 17:30; Stop 07/11/19 at 17:29; Status DC Morphine Sulfate (Morphine Sulfate) 2 mg PRN Q2HR PRN IV PAIN; Start 07/10/19 at 17:30; Stop 07/10/19 at 17:26; Status DC Sodium Chloride 1,000 ml @ 75 mls/hr [id number] IV Last administered on 07/10/19at 17:36; Start 07/10/19 at 17:20; Stop 07/11/19 at 17:19; Status DC Fentanyl Citrate (Fentanyl 2ml Vial) 50 mcg PRN Q2HR PRN IV PAIN SEVERE Last administered on 07/11/19at 05:05; Start 07/10/19 at 17:30; Stop 07/12/19 at 10:32; Status DC Orphenadrine Citrate (Norflex) 30 mg PRN Q8HRS PRN IV muscle spasm; Start 07/10/19 at 17:30 Non-Formulary Medication 1 ea 5XDAY PO Last administered on 07/14/19at 09:19; Start 07/10/19 at 22:00 Non-Formulary Medication 3 ea DAILY@0600 PO Last administered on 07/14/19at 06:19; Start 07/11/19 at 06:00 Non-Formulary Medication 2 ea TID@1000,1400,2200 PO Last administered on 07/14/19at 09:19; Start 07/10/19 at 22:00 Non-Formulary Medication 1 ea DAILY@1800 PO Last administered on 07/13/19at 22:13; Start 07/11/19 at 18:00 Non-Formulary Medication 1 ea DAILY PO ; Start 07/11/19 at 09:00; Stop 07/11/19 at 00:51; Status DC Non-Formulary Medication 1 ea DAILY PO ; Start 07/11/19 at 09:00; Stop 07/11/19 at 00:51; Status DC Non-Formulary Medication 1 ea DAILY PO ; Start 07/11/19 at 09:00; Stop 07/11/19 at 00:51; Status DC Non-Formulary Medication 1 ea PRN BID PRN PO PARKINSON'S SYMPTOMS; Start 07/10/19 at 19:30; Stop 07/11/19 at 00:51; Status DC Non-Formulary Medication 1 ea 0100 PO Last administered on 07/14/19at 00:56; Start 07/11/19 at 01:00 Non-Formulary Medication 1 ea 1400 PO Last administered on 07/13/19at 13:30; Start 07/11/19 at 14:00 Non-Formulary Medication 1 ea DAILY08 PO Last administered on 07/14/19at 08:27; Start 07/11/19 at 08:00 Non-Formulary Medication 1 ea DAILY08 PO Last administered on 07/14/19at 08:27; Start 07/11/19 at 08:00 Propofol 20 ml @ As Directed STK-MED ONCE IV ; Start 07/11/19 at 07:10; Stop 07/11/19 at 07:10; Status DC Dexamethasone Sodium Phosphate (Decadron) 4 mg STK-MED ONCE .ROUTE ; Start 07/11/19 at 07:10; Stop 07/11/19 at 07:10; Status DC Lidocaine HCl (Lidocaine Pf 2% Vial) 5 ml STK-MED ONCE .ROUTE ; Start 07/11/19 at 07:10; Stop 07/11/19 at 07:11; Status DC Ondansetron HCl (Zofran) 4 mg STK-MED ONCE .ROUTE ; Start 07/11/19 at 07:10; Stop 07/11/19 at 07:11; Status DC Morphine Sulfate (Morphine Sulfate) 1 mg PRN Q10MIN PRN IV SEVERE PAIN 7-10; Start 07/11/19 at 07:30; Stop 07/12/19 at 07:29; Status DC Ringer's Solution 1,000 ml @ 30 mls/hr Q24H IV ; Start 07/11/19 at 07:22; Stop 07/11/19 at 19:21; Status DC Hydromorphone HCl (Dilaudid) 0.5 mg PRN Q10MIN PRN IV SEV PAIN, Second choice; Start 07/11/19 at 07:30; Stop 07/12/19 at 07:29; Status DC Prochlorperazine Edisylate (Compazine) 5 mg PACU PRN PRN IV NAUSEA, MRX1; Start 07/11/19 at 07:30; Stop 07/12/19 at 07:29; Status DC Fentanyl Citrate (Fentanyl 2ml Vial) 100 mcg STK-MED ONCE .ROUTE ; Start 07/11/19 at 07:36; Stop 07/11/19 at 07:36; Status DC Cefazolin Sodium 50 ml @ As Directed STK-MED ONCE IV ; Start 07/11/19 at 08:12; Stop 07/11/19 at 08:12; Status DC Sevoflurane (Ultane) 60 ml STK-MED ONCE IH ; Start 07/11/19 at 08:31; Stop 07/11/19 at 08:31; Status DC Morphine Sulfate 5 mg/Ketorolac Tromethamine 30 mg/Ropivacaine 60 ml/Epinephrine HCl 0.5 mg/Sodium Chloride 100 ml @ 100 mls/hr 1X ONCE INT ART Last admini stered on 07/11/19at 10:20; Start 07/11/19 at 06:00; Stop 07/11/19 at 09:07; Status DC Ephedrine Sulfate (ePHEDrine PF IN SALINE SYRINGE) 50 mg STK-MED ONCE IV ; Start 07/11/19 at 09:12; Stop 07/11/19 at 09:12; Status DC Sevoflurane (Ultane) 90 ml STK-MED ONCE IH ; Start 07/11/19 at 09:14; Stop 07/11/19 at 09:14; Status DC Cefazolin Sodium (Ancef) 1 gm STK-MED ONCE .ROUTE ; Start 07/11/19 at 09:17; Stop 07/11/19 at 09:17; Status DC Fentanyl Citrate (Fentanyl 2ml Vial) 100 mcg STK-MED ONCE .ROUTE ; Start 07/11/19 at 09:47; Stop 07/11/19 at 09:47; Status DC Cefazolin Sodium 50 ml @ 100 mls/hr 1X PREOP PRN IV PRIOR TO PROCEDURE Last administered on 07/11/19at 09:58; Start 07/12/19 at 06:00; Stop 07/11/19 at 11:25; Status DC Oxycodone HCl (Roxicodone) 5 mg PRN Q3HRS PRN PO PAIN, 1ST CHOICE PO Last administered on 07/12/19at 18:07; Start 07/11/19 at 10:45 Morphine Sulfate (Morphine Sulfate) 2 mg PRN Q1HR PRN IV SEVERE PAIN; Start 07/11/19 at 10:45 Fentanyl Citrate (Fentanyl 2ml Vial) 25 mcg PRN Q1HR PRN IV MODERATE PAIN; Start 07/11/19 at 10:45 Senna/Docusate Sodium (Senna Plus) 1 tab DAILY PO Last administered on 07/14/19at 09:19; Start 07/12/19 at 09:00 Polyethylene Glycol (miraLAX PACKET) 17 gm PRN DAILY PRN PO CONSTIPATION; Start 07/11/19 at 10:45 Ondansetron HCl (Zofran) 4 mg PRN Q4HRS PRN IV NAUSEA/VOMITING; Start 07/11/19 at 10:45 Magnesium Hydroxide (Milk Of Magnesia) 2,400 mg 1X PRN PRN PO CONSTIPATION; Start 07/12/19 at 06:00; Stop 07/13/19 at 05:59; Status DC Bisacodyl (Dulcolax Supp) 10 mg 1X PRN PRN PA CONSTIPATION; Start 07/12/19 at 16:00; Stop 07/13/19 at 15:59; Status DC Acetaminophen/ Hydrocodone Bitart (Lortab 7.5/325) 1 tab PRN Q4HRS PRN PO PAIN, 2ND CHOICE PO Last administered on 07/13/19at 20:25; Start 07/11/19 at 10:45 Dextrose (Dextrose 50%-Water Syringe) 12.5 gm PRN Q15MIN PRN IV SEE COMMENTS; Start 07/11/19 at 10:45 Dextrose 250 ml PRN Q15MIN PRN IV SEE COMMENTS; Start 07/11/19 at 10:45 Cefazolin Sodium (Ancef) 1 gm Q6H IVP Last administered on 07/12/19at 02:35; Start 07/11/19 at 14:00; Stop 07/12/19 at 02:01; Status DC Rivaroxaban (Xarelto) 10 mg DAILYWSUP PO Last administered on 07/13/19at 16:59; Start 07/11/19 at 17:00; Stop 08/22/19 at 16:59 Ringer's Solution 1,000 ml @ 120 mls/hr Q8H20M IV Last administered on 07/14/19at 06:19; Start 07/11/19 at 11:45 Carbidopa/Levodopa (Sinemet 25/100) 1 tab PRN BID PRN PO TREMORS; Start 07/11/19 at 14:45 Vitamin D (Vitamin D3) 2,000 unit DAILY PO Last administered on 07/14/19at 09:19; Start 07/12/19 at 09:00 Citalopram Hydrobromide (CeleXA) 10 mg DAILY PO ; Start 07/12/19 at 09:00; Status Cancel Cyanocobalamin (Vitamin B-12) 5,000 mcg DAILY PO Last administered on 07/14/19at 09:19; Start 07/12/19 at 09:00 Non-Formulary Medication (Carbidopa/ Levodopa (Rytary ER 61.25 mg-245 mg Cap)) 1 each 5XDAY PO ; Start 07/11/19 at 18:00; Stop 07/11/19 at 14:44; Status DC Non-Formulary Medication (Meloxicam ) 1 tab DAILY PO ; Start 07/12/19 at 09:00; Stop 07/11/19 at 14:44; Status DC Non-Formulary Medication (Pantoprazole Sodium (Protonix)) 40 mg DAILY PO ; Start 07/12/19 at 09:00; Stop 07/11/19 at 14:44; Status DC Non-Formulary Medication (Rasagiline Mesylate (Azilect)) 1 mg DAILY PO ; Start 07/12/19 at 09:00; Stop 07/11/19 at 14:44; Status DC Non-Formulary Medication (Tolterodine Tartrate (Tolterodine Tartrate Er)) 4 mg DAILY PO ; Start 07/12/19 at 09:00; Stop 07/11/19 at 14:44; Status DC Sodium Chloride 1,000 ml @ 500 mls/hr Q2H IV ; Start 07/12/19 at 11:15; Status Cancel Sodium Chloride 1,000 ml @ 500 mls/hr 1X ONCE IV Last administered on 07/12/19at 11:16; Start 07/12/19 at 11:15; Stop 07/12/19 at 13:14; Status DC Sodium Chloride 750 ml @ 375 mls/hr 1X ONCE IV Last administered on 07/12/19at 15:33; Start 07/12/19 at 15:30; Stop 07/12/19 at 17:29; Status DC Info (Anti-Coagulation Monitoring By Pharmacy) 1 each PRN DAILY PRN MC SEE COMMENTS Last administered on 07/13/19at 16:06; Start 07/13/19 at 13:00 Active Scripts Active Reported Rytary ER 48.75 mg-195 mg Cap (Carbidopa/Levodopa) 1 Each Capsule.er 1 Each PO 5XDAY Rytary ER 61.25 mg-245 mg Cap (Carbidopa/Levodopa) 1 Each Capsule.er 1 Each PO 5XDAY Protonix (Pantoprazole Sodium) 20 Mg Tablet.dr 40 Mg PO DAILY Azilect (Rasagiline Mesylate) 1 Mg Tablet 1 Mg PO DAILY Meloxicam 15 Mg Tablet 1 Tab PO DAILY Citalopram Hbr (Citalopram Hydrobromide) 10 Mg Tablet 1 Tab PO DAILY Sinemet 25-100 Mg Tablet (Carbidopa/Levodopa) 1 Each Tablet 1 Tab PO PRN BID PRN Vitamin B-12 (Cyanocobalamin (Vitamin B-12)) 1,000 Mcg Tablet 5,000 Mcg PO DAILY Vitamin D3 (Cholecalciferol (Vitamin D3)) 1,000 Unit Tablet 2,000 Unit PO DAILY Tolterodine Tartrate Er (Tolterodine Tartrate) 4 Mg Cap.er.24h 4 Mg PO DAILY Women's Daily Caplet (Multivits,Ca,Minerals/Iron/Fa) 1 Each Tablet 1 Each PO DAILY [place]-3 Krill Oil Sfgl (Krill/Om-3/Dha/Epa/Phospho/Ast) 1 Each Capsule 1 Each PO BID Vital Signs Vital Signs Date Time Temp Pulse Resp B/P (MAP) Pulse Ox O2 Delivery O2 Flow Rate FiO2 07/14/19 11:00 97.9 73 16 147/71 (96) 100 Room Air 97.9 Labs Laboratory Tests Test 07/13/19 05:00 White Blood Count 6.7 x10^3/uL (4.0-11.0) Red Blood Count 3.19 x10^6/uL (3.50-5.40) Hemoglobin 10.0 g/dL (12.0-15.5) Hematocrit 29.2 % (36.0-47.0) Mean Corpuscular Volume 91 fL (79-100) Mean Corpuscular Hemoglobin 31 pg (25-35) Mean Corpuscular Hemoglobin Concent 34 g/dL (31-37) Red Cell Distribution Width 13.8 % (11.5-14.5) Platelet Count 187 x10^3/uL (140-400) Neutrophils (%) (Auto) 56 % (31-73) Lymphocytes (%) (Auto) 31 % (24-48) Monocytes (%) (Auto) 9 % (0-9) Eosinophils (%) (Auto) 4 % (0-3) Basophils (%) (Auto) 0 % (0-3) Neutrophils # (Auto) 3.8 x10^3/uL (1.8-7.7) Lymphocytes # (Auto) 2.1 x10^3/uL (1.0-4.8) Monocytes # (Auto) 0.6 x10^3/uL (0.0-1.1) Eosinophils # (Auto) 0.3 x10^3/uL (0.0-0.7) Basophils # (Auto) 0.0 x10^3/uL (0.0-0.2) Sodium Level 142 mmol/L (136-145) Potassium Level 4.0 mmol/L (3.5-5.1) Chloride Level 106 mmol/L (98-107) Carbon Dioxide Level 30 mmol/L (21-32) Anion Gap 6 (6-14) Blood Urea Nitrogen 3 mg/dL (7-20) Creatinine 0.5 mg/dL (0.6-1.0) Estimated GFR (Cockcroft-Gault) 123.8 BUN/Creatinine Ratio 6 (6-20) Glucose Level 97 mg/dL (70-99) Calcium Level 8.3 mg/dL (8.5-10.1) Total Bilirubin 0.9 mg/dL (0.2-1.0) Aspartate Amino Transf (AST/SGOT) 17 U/L (15-37) Alanine Aminotransferase (ALT/SGPT) < 6 U/L (14-59) Alkaline Phosphatase 50 U/L (46-116) Total Protein 5.5 g/dL (6.4-8.2) Albumin 2.5 g/dL (3.4-5.0) Albumin/Globulin Ratio 0.8 (1.0-1.7) Allergies Allergies Coded Allergies Type Severity Reaction Last Updated Verified No Known Drug Allergies 10/11/16 No Disposition/Orders: Other (to snf bed) LEONEL TOSCANO MD Jul 14, 2019 12:38
[2019-07-14] MEDS ORDERED: POLY17PO28 PO (12:41)
[2019-07-14] MEDS ORDERED: RIVA10TA PO (12:41)
[2019-07-14] MEDS ORDERED: SENN-22 PO (12:41)
[2019-07-14] MEDS ORDERED: HYDR-2765 PO (12:41)
--- NOTE | 2019-07-14 13:11 | NUR ---
SS following up with discharge planning. Pt's family in room and requesting to speak with SS. Pt's family reported that they would prefer pt to be closer to [place] [place] and requested that referral be phoned and faxed to [facility], ; fax [phone]. SS phoned and faxed referral. SS will await acceptance decision and will proceed accordingly with discharge planning.
[2019-07-14] MEDS: CITALOPRAM 10 MG PO SCH (13:54)
--- NOTE | 2019-07-14 14:31 | SNU/HH DC ---
DISCHARGE ORDERS DISCHARGE INFORMATION: FINAL DIAGNOSIS Problems Medical Problems: (1) Closed right hip fracture Status: Acute CONDITION ON DISCHARGE: Stable CODE STATUS: Code Status: Full ALF: SNF STAY <30 DAYS: Yes HOSPICE: HOSPICE: No HOSPICE EVAL & TREAT: No LTAC: ADMIT TO LTAC: No POST DISCHARGE ORDERS: ACTIVITY ORDERS: Activity as tolerated WEIGHT BEARING STATUS: As tolerated BATHING ORDERS: No Tub Bath until see DIET AFTER DISCHARGE: Cardiac WOUND/INCISION CARE: May get incision wet CHECKS AFTER DISCHARGE: CHECKS AFTER DISCHARGE: Check blood press - daily TREATMENT/EQUIPMENT ORDERS: ADAPTIVE EQUIPMENT NEEDED: None, Brace/splint, Front wheeled walker Physical Therapy For: Evalulation/Treatment Occupational Therapy For: Evaluation/Treatment DISCHARGE MEDICATIONS: Home Meds Active Scripts Sennosides/Docusate Sodium (SENNA-TIME S TABLET) 1 Each Tablet, 1 TAB PO DAILY for prevent hard stools for 10 Days, #10 TAB Prov:LEONEL TOSCANO MD 07/14/19 Polyethylene Glycol 3350 (POLYETHYLENE GLYCOL 3350) 17 Gm Powd.pack, 17 GM PO PRN DAILY PRN for CONSTIPATION for 30 Days, #60 PKT Prov:LEONEL TOSCANO MD 07/14/19 Hydrocodone Bit/Acetaminophen (HYDROCODONE-APAP 7.5-325 ) 1 Tab Tablet, 1 TAB PO PRN Q4HRS PRN for PAIN, 2ND CHOICE PO for 14 Days, #30 TAB Prov:LEONEL TOSCANO MD 07/14/19 Rivaroxaban (XARELTO) 10 Mg Tablet, 10 MG PO DAILYWSUP for dvt prevention for 14 Days, #14 TAB Prov:LEONEL TOSCANO MD 07/14/19 Reported Medications Carbidopa/Levodopa (Rytary ER 48.75 mg-195 mg Cap) 1 Each Capsule.er, 1 EACH PO 5XDAY for na, CAP.SR 07/10/19 Carbidopa/Levodopa (Rytary ER 61.25 mg-245 mg Cap) 1 Each Capsule.er, 1 EACH PO 5XDAY for na, CAP.SR 07/10/19 Pantoprazole Sodium (PROTONIX) 20 Mg Tablet.dr, 40 MG PO DAILY for gerd, TAB 07/10/19 Rasagiline Mesylate (AZILECT) 1 Mg Tablet, 1 MG PO DAILY for na, TAB 07/10/19 Citalopram Hydrobromide (CITALOPRAM HBR) 10 Mg Tablet, 1 TAB PO DAILY for depression/anxiety , #30 TAB 3 Refills 07/10/19 Carbidopa/Levodopa (SINEMET 25-100 MG TABLET) 1 Each Tablet, 1 TAB PO PRN BID PRN for TREMORS, TAB 12/10/17 Cyanocobalamin (Vitamin B-12) (VITAMIN B-12) 1,000 Mcg Tablet, 5000 MCG PO DAILY, TAB 12/10/17 Cholecalciferol (Vitamin D3) (VITAMIN D3) 1,000 Unit Tablet, 2000 UNIT PO DAILY, TAB 12/10/17 Tolterodine Tartrate (TOLTERODINE TARTRATE ER) 4 Mg Cap.er.24h, 4 MG PO DAILY, TAB.SR 10/11/16 Multivits,Ca,Minerals/Iron/Fa (WOMEN'S DAILY CAPLET) 1 Each Tablet, 1 EACH PO DAILY 10/11/16 Krill/Om-3/Dha/Epa/Phospho/Ast ([place]-3 Krill Oil Sfgl) 1 Each Capsule, 1 EACH PO BID 10/11/16 Discontinued Reported Medications Meloxicam (MELOXICAM) 15 Mg Tablet, 1 TAB PO DAILY for pain, #30 TAB 2 Refills 07/10/19 LEONEL TOSCANO MD Jul 14, 2019 14:31
--- NOTE | 2019-07-14 14:39 | NUR ---
SS following up with discharge planning. Pt accepted at [facility]. SS phoned and faxed discharge orders to [facility], ; fax [phone]. Pt will discharge today and go to [place] at 1800. [place] to provide transportation. Pt, pt's family, and pt's RN notified.
[2019-07-14 15:00] VITALS: BP 135/68
[2019-07-14] MEDS: RIVAROXABAN 10 MG TABLET. PO SCH (17:26)
[2019-07-14] MEDS: HYDROcodone/APAP 7.5/325MG 1 TAB TABLET PO PRN (17:30)
--- NOTE | 2019-07-14 18:33 | NUR ---
Discharge Note: VALENCIA ABREU Discharge instructions and discharge home medications reviewed with Other facility and a copy given. All questions have been answered and understanding verbalized. The following instructions and handouts were given: Discharge Instructions, Med Lists Discontinued lines and drains: PIV removed, Catheter intact. Patient discharged to [place] with correction care via Transport
[2019-07-14 19:00] VITALS: BP 109/39
--- NOTE | 2019-07-15 08:07 | PATHOLOGY ---
[facility] Accession Number: [id number] . 01 Material submitted: . hip - RIGHT HIP BONES. Modifiers: right . 01 Clinical history: . R hip fracture . 02 Diagnosis: Femoral head and femoral neck, right hip hemiarthroplasty: - Focal fragmentation of bony trabeculae and recent intertrabecular hemorrhage consistent with fracture . (JPM:mml; 07/14/2019) [facility]/07/15/2019 . 02 Comment: There is no evidence of malignancy. . (JPM:mml; 07/14/2019) . 02 Electronically signed: . Gallo Matias MD, Pathologist NPI- [id number] . 01 Gross description: . The specimen is received in formalin, labeled "[place], right hip bones". Received is a femoral head measuring 4.4 x 4.4 x 3.9 cm and separately submitted femoral neck measuring 3.5 x 3.0 x 1.5 cm. The articular surface is pale snowden and smooth in appearance. The distal most aspect of the femoral head and proximal most aspect of the femoral neck are hemorrhagic in appearance, consistent with fracture site. Sectioning reveals yellow-snowden to red-brown cut surfaces. The specimen is submitted representatively in cassette A1, following decalcification. (CAA; 07/13/2019) QAC/QAC . 02 Pathologist provided ICD-10: S72.091A . 02 CPT . 556254, 304258 Specimen Comment: A courtesy copy of this report has been sent to Specimen Comment: [phone], , . Specimen Comment: Report sent to DR QUINN / DR SESAY Performed at: [address] [place] [address] [facility] [address], [place], [place] [id number] MD Thong Arana MD Phone: [phone] Performed at: [address] [id number] MD Gallo Matias MD Phone: [phone]
== END 2019-07-14 18:05 | DRG 470 ==
LOC: ER 16:25 → 2 NORTH 17:00 → UNDOADMIN 17:00 → 4 NORTH 17:00
PROVIDERS: ADMIT Internal Medicine; ATTEND Internal Medicine
PROC: 0SRR0JZ Replacement of Right Hip Joint, Femoral Surface with Synthetic Substitute, Open Approach (ICD-10-PCS; principal; 2019-07-11 08:00)
DX: S72.002A Fracture of unspecified part of neck of left femur, initial encounter for closed fracture (principal); I10 Essential (primary) hypertension; G20 Parkinson's disease; G47.33 Obstructive sleep apnea (adult) (pediatric); K21.9 Gastro-esophageal reflux disease without esophagitis; Z60.2 Problems related to living alone; Z96.652 Presence of left artificial knee joint; W18.39XA Other fall on same level, initial encounter; Y93.89 Activity, other specified; Y92.89 Other specified places as the place of occurrence of the external cause; Y99.8 Other external cause status; Z82.0 Family history of epilepsy and other diseases of the nervous system; Z87.442 Personal history of urinary calculi; Z90.49 Acquired absence of other specified parts of digestive tract
CPT/HCPCS: 36415; 71045; 73502; 76000; 80053; 85014; 85018; 85025; 87641; 88305; 88311; 93005; A7015; C1713; C1887; J0171; J0690; J1100; J1885; J2001; J2405; J2704; J3010; J7030; J7120; 97110; 97530; 97535; 99285-25; G0378